=== PATIENT | female | born 1935 | race Caucasian/White ===

== ENCOUNTER → 2018-12-25 | Outpatient (CLI) | payer MEDICARE, OTHER ==
--- NOTE | 2018-12-25 10:54 | KCIC ---
CT HEAD INDICATION: Late onset Alzheimer's COMPARISON: None Available. Exposure: One or more of the following individualized dose reduction techniques were utilized for this examination: 1. Automated exposure control 2. Adjustment of the mA and/or kV according to patient size 3. Use of iterative reconstruction technique TECHNIQUE: 5 mm contiguous axial images were obtained from the skull base to the vertex in both bone and soft tissue algorithm. FINDINGS: Mild bilateral periventricular white matter hypodensities likely chronic small vessel ischemic disease. Mild age related cerebral atrophy changes. No evidence of acute intracranial hemorrhage. No extra-axial fluid collections. No mass effect or midline shift. Ventricular size is appropriate. Basal cisterns are patent. No fractures identified.Jack-white differentiation is preserved.Globes and orbits are within normal limits. Paranasal sinuses and mastoid air cells are clear. IMPRESSION: No acute intracranial findings. Electronically signed by: Adriano Taylor MD (12/25/2018 10:51 AM) [facility]
== END | disposition home or self-care (01) ==
LOC: KCIC CT 09:56
PROVIDERS: ATTEND Psychiatry & Neurology Neurology with Special Qualifications in Child Neurology
DX: G31.89 Other specified degenerative diseases of nervous system (principal); G30.1 Alzheimer's disease with late onset; R90.82 White matter disease, unspecified
CPT/HCPCS: 70450

== ENCOUNTER → 2020-03-26 | Outpatient (CLI) | payer MEDICARE, OTHER ==
[~2020-03-26] MED LIST: REGADENOSON 0.4 MG/5 ML DISP.SYRIN. IV ONE
--- NOTE | 2020-03-28 10:39 | RAD ---
MR#: [id number] Date of Study: 03/26/2020 Ordering Physician: ASHLEY NAVARRO, Referring Physician: KASIA COSTELLO Tech: RT Dominique (R) (N) APPROVED REPORT Test Type: Pharmacological Stress Nurse/Tech: Griselda Joya RN Test Indications: chest pain Cardiac History: Hypertension,valve replacement 1995 Medications: See Electronic Medical Record Medical History: See Electronic Medical Record Resting ECG: SB with BBB Resting Heart Rate: 51 bpm Resting Blood Pressure: 170/65mmHg Pretest Chest Pain: No chest pain Nurse/Tech Notes S1,S2 and lungs clear to auscultation. Consent: The procedure was explained to the patient in lay terms. Informed consent was witnessed. David eout was entered into Curiously. History and Stress Test performed by DEBORA Cha, ELENA (R) (N) Pharm. Details Pharmacologic stress testing was performed using 0.4mg per 5ml of regadenoson given intravenously ove r 7-10 seconds. Stress Symptoms Headache POST EXERCISE Reason for Termination: Infusion complete Target HR: No Max HR: 82 bpm 71% of Maximum Predicted HR: 114 bpm Max Blood Pressure: 121/52mmHg Blood Pressure response to exercise: Abnormal blood pressure response during stress. Heart Rate response to exercise: WNL Chest Pain: No. Arrhythmia: No. ST Change: No. INTERPRETATION Stress EKG Conclusion: The resting EKG shows a sinus rhythm and nonspecific ST-T wave changes. The stress EKG shows no significant change from baseline. No EKG evidence of stress-induced ischemia. Imaging Protocol IMAGE PROTOCOL: Rest Tc-99m/stress Tc-99m 1 day Rest: Stress: Viability: Radiopharm.Tc99m DxaotlhsrTo52g Sestamibi Dubp60tSa 31mCi Duration 13min. 13min. Img Date 03/26/2020 03/26/2020 Inj-Img Lajf90ldp. 60min. Rest Admin Site:IV - Right WristAdministrator:DEBORA Cha, ELENA (R)(N) Stress Admin Site: IV - Right WristAdministrator: DEBORA Cha, ARRT (R)(N) STRESS DATA End Diast. Vol.62.0mlLVEDV index BSA35.0ml End Syst. Vol.13.0mlLVESV index BSA8.0ml Myocardial Mass99.0gEject. Vkrprvzk60.0% Stress Scores Regional WT0.00Summed WT2.00 Regional WM0.00Summed WM1.00 LV Perfusion The stress scans show a mild to moderate apical defect. The rest scans showed mild apical thinning. Nuclear imaging show an area of reversible ischemia at the apex. Wall Motion Left ventricular systolic function is normal with an ejection fraction of greater than 70%. LV Perf. Quant 17 Seg. SSS10.00 17 Seg. SRS6.00 17 Seg. SDS4.00 Stress Defect Extent (% LAD)41.30Rest Defect Extent (% LAD)11.90Rev. Defect Extent (% LAD)41.30 Stress Defect Extent (% LCX) 15.00Rest Defect Extent (% LCX)0.00Rev. Defect Extent (% LCX)15.00 Stress Defect Extent (% RCA)0.00Rest Defect Extent (% RCA)0.00Rev. Defect Extent (% RCA)0.00 Stress Defect Extent (% RACHEL)25.90Rest Defect Extent (% RACHEL)5.00Rev. Defect Extent (% RACHEL)25.90 Conclusion 1. No EKG evidence of stress-induced ischemia. 2. Nuclear imaging shows a area of reversible ischemia at the apex. 3. Left ventricular systolic function is normal with an ejection fraction of greater than 70%. 4. Moderate to moderately high risk test. Signed by : Rashaun Pickett MD Electronically Approved : 03/28/2020 10:39:07
== END | disposition home or self-care (01) ==
LOC: NM 08:55
PROVIDERS: ATTEND Internal Medicine Cardiovascular Disease
DX: I25.89 Other forms of chronic ischemic heart disease (principal)
CPT/HCPCS: 78452; 93017; A9500; J2785

== ENCOUNTER → 2020-04-08 | Outpatient (CLI) | payer MEDICARE, OTHER ==
[~2020-04-08] MED LIST changes: +AMLO5TAB10 PO; +ATOR40TA59 PO; +CETI10TA16 PO; +DONE10TA7 PO; +FEXO180T16 PO; +HYDR12.575 PO; +MEMA10TA PO; -REGADENOSON 0.4 MG/5 ML DISP.SYRIN. IV ONE; +TELM40TA PO; +WARF7.5T45 PO; +ZOLP5TAB5 PO
== END ==
LOC: LAB 13:03
PROVIDERS: ATTEND Internal Medicine Cardiovascular Disease
DX: Z20.828 Contact with and (suspected) exposure to other viral communicable diseases (principal)
CPT/HCPCS: U0003-CS

== ENCOUNTER 2020-04-11 08:26 | Observation (INO) | payer MEDICARE, OTHER ==
[2020-04-11] VITALS (22 sets, daily range): BP systolic 93–177; BP diastolic 48–88
[~2020-04-11] VITALS: Ht 152.4 cm; Wt 83.0 kg
[~2020-04-11 08:26] MED LIST changes: +AMLO-186 PO; -AMLO5TAB10 PO
[2020-04-11 09:12] LABS: HEMATOCRIT 39.3 % (36.0-47.0); HEMOGLOBIN 13.5 g/dL (12.0-15.5); RED BLOOD COUNT 4.31 x10^6/uL (3.50-5.40); RED CELL DISTRIBUTION WIDTH 14.1 % (11.5-14.5); WHITE BLOOD COUNT 5.3 x10^3/uL (4.0-11.0)
[2020-04-11 09:22] LABS: PROTHROMBIN TIME PATIENT 16.2 SEC (11.7-14.0)
[2020-04-11 09:27] LABS: CALCIUM 9.2 mg/dL (8.5-10.1); CREATININE 1.5 mg/dL (0.6-1.0); POTASSIUM 3.9 mmol/L (3.5-5.1)
[2020-04-11] MEDS ORDERED: DONE10TA7 PO (09:27)
[2020-04-11] MEDS ORDERED: TELM80TA PO (09:27)
[2020-04-11] MEDS ORDERED: IODIXANOL 320 MG/ML 100 ML VIAL. ONE ×2 (09:45→10:48)
[2020-04-11] MEDS ORDERED: LIDOCAINE 1% PF 2 ML VIAL. ONE (09:45)
[2020-04-11] MEDS ORDERED: VERAPAMIL 5 MG/2 ML VIAL. ONE (10:06)
[2020-04-11] MEDS ORDERED: HEPARIN for IV BOLUS 10,000 UNIT/10 ML VIAL. ONE (10:06)
[2020-04-11] MEDS ORDERED: MIDAZOLAM HCL/PF 2 MG/2 ML VIAL. ONE ×2 (10:06→10:46)
[2020-04-11] MEDS ORDERED: fentaNYL PF VIAL 100 MCG/2 ML VIAL ONE (10:06)
[2020-04-11] MEDS ORDERED: NITROGLYCERIN 200 MCG/2 ML SYRINGE FOR CATH/VASC LAB. ONE (10:07)
[2020-04-11] MEDS ORDERED: NITROGLYCERIN 200 MCG/2 ML SYRINGE FOR CATH/VASC LAB. IART ONE (10:15)
[2020-04-11] MEDS ORDERED: VERAPAMIL 5 MG/2 ML VIAL. IART ONE (10:15)
[2020-04-11] MEDS ORDERED: LIDOCAINE 1% PF 2 ML VIAL. INJ ONE (10:15)
[2020-04-11] MEDS ORDERED: fentaNYL PF VIAL 100 MCG/2 ML VIAL IV ONE (10:15)
[2020-04-11] MEDS ORDERED: IODIXANOL 320 MG/ML 100 ML VIAL. IART ONE (10:15)
[2020-04-11] MEDS ORDERED: MIDAZOLAM HCL/PF 2 MG/2 ML VIAL. IV ONE (10:15)
[2020-04-11] MEDS ORDERED: HEPARIN for IV BOLUS 10,000 UNIT/10 ML VIAL. IART ONE (10:15)
[2020-04-11] MEDS ORDERED: LIDOCAINE 1% Multi-Dose 20 ML VIAL. ONE (10:48)
[2020-04-11] MEDS ORDERED: diphenhydrAMINE 50 MG/ML VIAL ONE (10:52)
[2020-04-11] MEDS ORDERED: BIVALIRUDIN 250 MG VIAL. IV ONE ×2 (10:58→11:15)
[2020-04-11] MEDS ORDERED: diphenhydrAMINE 50 MG/ML VIAL IVP ONE (11:00)
[2020-04-11] MEDS ORDERED: ASPIRIN 325 MG TABLET PO ONE (11:15)
[2020-04-11] MEDS ORDERED: CLOPIDOGREL BISULFATE 75 MG TABLET PO ONE (11:15)
[2020-04-11] MEDS ORDERED: LIDOCAINE 1% Multi-Dose 20 ML VIAL. INJ ONE (11:15)
[2020-04-11] MEDS ORDERED: CONTRAST GIVEN. MC PRN (11:15)
[2020-04-11] MEDS ORDERED: ASPIRIN 325 MG TABLET ONE (11:19)
[2020-04-11] MEDS ORDERED: CLOPIDOGREL BISULFATE 75 MG TABLET ONE (11:19)
--- NOTE | 2020-04-11 11:48 | PDOC ---
MODERATE SEDATION ASSESSMENT RISKS/ALTERNATIVES Risks/Alternatives Risks and alternatives of this type of sedation and procedure discussed with: RISK/ALTERNATIVES: Patient H & P ON CHART H & P H & P on chart and reviewed for co-morbid conditions and appropriate labs. H&P ON CHART: Yes STATUS PREG STATUS ASSESSED: N/A MEDS/ALLERGIES REVIEWED Meds/Allergies Reviewed Medications and Allergies including time and route of recently administered narcotics and sedatives. MEDS/ALLERGIES REVIEWED: Yes ASA RATING ASA RATING: III AIRWAY ASSESSMENT Airway Assessment Airway patency, oral function limitations, presence of caps, crowns, dentures, partials, and ability to extend neck assessed. AIRWAY ASSESSMENT: Yes MALLAMPATI SCORE MALLAMPATI SCORE: II PRE-SEDATION ASSESSMENT PRE-SEDATION ASSESSMENT: Yes ASHLEY NAVARRO MD Apr 11, 2020 11:48
[2020-04-11] MEDS ORDERED: NITROGLYCERIN SUBLINGUAL 0.4 MG BOTTLE OF 25. SL PRN (12:00)
[2020-04-11] MEDS ORDERED: 0.9 % SODIUM CHLORIDE 10 ML DISP.SYRIN. IV PRN (12:00)
--- NOTE | 2020-04-11 12:00 | NUR ---
Pt arrived to room 250 via bed with lab intern staff and daughter. Right Radial TR band in place with 10cc's of air. No oozing, 2+ radial pulses. Right groin cath site soft and no bleeding. Right lower extremity warm with 2+ pedal pulses. Patient instructed to lay supine for 2 hours after cath. Tele monitor applied, pt in SR with rate in 50s. A&Ox3, forgetful at times, complaining of back pain d/t laying flat. No SOB or chest pain. Will continue to monitor.
--- NOTE | 2020-04-11 12:07 | CARD ---
MR#: [id number] Date of Study: 04/11/2020 Ordering Physician: ASHLEY BERNSTEIN, Referring Physician: ASHLEY BERNSTEIN Tech: Maylin Torres APPROVED REPORT Technologist: Maylin Torres Nurse: Griselda Joya RN Procedure(s) performed: 1. Left heart catheterization, selective coronary and bypass graft angiograp hy. 2. Successful PCI/drug-eluting stents placement to the left anterior descending artery. fl time: 20.3 min dose: 129 gycm2 contrast: 158 ml moderate sedation: 70 MINS INDICATION The indication(s) include : Unstable angina and positive stress test.. [facility] Clinical Frailty Scale [facility] Clinical Frailty Scale: Mildly Frail Heart Failure Heart Failure: No PROCEDURE NARRATIVE After explaining the risks, benefits and alternative options, informed consent was obtained from jong ent. Patient was brought to the cardiac Software Architect and her right wrist was prepped and draped in the u sual fashion after confirming a positive modified Juvenal's test. Arterial access was obtained in the right radial artery and a 6 Cypriot sheath was inserted. Initial attempts to advance a 0.035 inch miguel dewire were unsuccessful due to radial arterial loop. This was crossed with a 0.014 inch [employer] pro-w ater guidewire and a 6 Cypriot David catheter was advanced. However, attempts at engaging the coronar y arteries with this catheter were unsuccessful. 5 Cypriot JL 3.5 was used to engage the left main co ronary artery and selective angiography was performed. Attempts at engaging the right coronary arter y with 5 Cypriot JR4 catheter were unsuccessful due to severe radial arterial spasm. This did not res olve in spite of adequate sedation and vasodilators. Hence a decision was made to switch the access site to right common femoral artery. The right groin was prepped and draped in the usual fashion, 20 cc of 2% lidocaine was infiltrated to the skin and subcutaneous tissues, arterial access obtained in the right common femoral artery and a 6 Cypriot sheath was inserted. The 5 Cypriot JR4 catheter was u sed to perform selective angiography of the right coronary artery. A 6 Cypriot multipurpose catheter was used to engage the saphenous vein graft to the right coronary artery and selective angiography wa s performed. Left ventriculography was not performed since patient has mechanical aortic valve. The following findings were noted. FINDINGS 1. Left main coronary artery arose from the left sinus of Valsalva, gave rise to the left anterior d escending and left circumflex arteries and did not show any significant stenosis. 2. The left anterior descending artery showed a calcified 90% stenosis in the proximal to mid segmen t, calcified 80% stenosis in the midsegment and 40% stenosis in the distal segment. The second diago nal branch which is a small caliber vessel showed 70% stenosis in the proximal segment. 3. The left circumflex artery did not show any significant stenosis. 4. The right coronary artery arose from the right sinus of Valsalva and showed 100% chronic total oc clusion in the proximal segment. 5. Saphenous vein graft to the right coronary artery was heavily calcified and showed 90% stenosis i n the midsegment. INTERVENTION Left main coronary artery was engaged with a 6 Cypriot XB 3.5 guide catheter. The stenosis in the lef t anterior descending artery were crossed with a 0.014 inch [employer] pro-water guidewire. These were pr edilated with a 2.5 x 15 mm [employer] emerge balloon. The proximal to mid segment stenosis w as then predilated with a 3.5 x 12 mm emerge balloon. Subsequently, the mid segment stenosis was karen ated with a 2.5 x 15 mm resolute Denis drug-eluting stent. The proximal segment stenosis was treated with a 3.5 x 12 mm resolute Denis drug-eluting stent. Follow-up angiography showed resolution of both the lesions to 0% with SYLVIE-3 distal flow. Patient tolerated the procedure well. Hemostasis was ac hieved using Angio-Seal in the right PIPE TESTING TECHNICIAN and TR band in the right radial artery.. There were no imme diate complications. SYLVIE Flow SYLVIE Flow (Pre-Intervention): SYLVIE-2 SYLVIE Flow (Post-Intervention): SYLVIE-3 Conclusion 1. Severe coronary artery disease involving the left anterior descending artery, right coronary vinod ry and also the saphenous vein graft to the right coronary artery as described above. 2. Successful PCI/drug-eluting stents placement to the left anterior descending artery. Recommendations 1. Aspirin 81 mg daily for 1 month (patient on triple therapy) 2. Plavix 75 mg daily 3. Plan for staged PCI/GUMARO to saphenous vein graft to the right coronary artery, possibly with dista l embolic protection. 4. Cardiovascular risk factor modification. Signed by : Ashley Bernstein, Electronically Approved : 04/11/2020 12:06:47
[2020-04-11] MEDS: IV 1/2 NORMAL SALINE 1,000 ML IV SCH (13:00)
--- NOTE | 2020-04-11 13:15 | EKG ---
[facility] [address] [place] [address] Test Date: 2020-04-11 Test Time: 13:13:26 Pat Name: ILANA LOZANO Department: Room: [facility] [place] Gender: F Tire Design Engineer: OSEAS : 1935 Requested By: ASHLEY NAVARRO Order Number: [id number] Reading MD: Measurements Intervals [place] Rate: 49 P: -68 IA: 240 QRS: 116 QRSD: 126 T: 21 QT: 506 QTc: 460 Interpretive Statements SINUS BRADYCARDIA PROLONGED IA INTERVAL ABNORMAL RIGHT AXIS DEVIATION LOW LIMB LEAD VOLTAGE RIGHT BUNDLE BRANCH BLOCK ABNORMAL ECG RI6.02 No previous ECG available for comparison
[2020-04-11] MEDS: ACETAMINOPHEN 325 MG TABLET. PO PRN (13:26)
[2020-04-11] MEDS ORDERED: ZOLPIDEM 5 MG TABLET. PO PRN (13:45)
[2020-04-11] MEDS ORDERED: HYDROcodone/APAP 5/325MG 1 TAB TABLET PO PRN (13:45)
[2020-04-11] MEDS ORDERED: WARFARIN 5 MG TABLET. PO ONE (16:00)
[2020-04-11] MEDS ORDERED: ATORVASTATIN CALCIUM 40 MG TABLET. PO SCH (21:00)
[2020-04-12] MEDS: IV 1/2 NORMAL SALINE 1,000 ML IV SCH (01:45)
[2020-04-12 02:27] VITALS: BP 100/52
[2020-04-12] MEDS: ACETAMINOPHEN 325 MG TABLET. PO PRN (06:02)
[2020-04-12 07:00] VITALS: BP 122/58
[2020-04-12] MEDS ORDERED: CLOPIDOGREL BISULFATE 75 MG TABLET PO SCH (08:00)
[2020-04-12] MEDS ORDERED: ASPIRIN ENTERIC COATED 81 MG TABLET.DR. PO SCH (08:00)
[2020-04-12] MEDS ORDERED: DONEPEZIL HCL 10 MG TABLET. PO SCH (09:00)
[2020-04-12] MEDS ORDERED: CETIRIZINE HCL 10 MG TABLET. PO SCH (09:00)
[2020-04-12] MEDS ORDERED: MEMANTINE 10 MG TABLET. PO SCH (09:00)
[2020-04-12] MEDS ORDERED: LOSARTAN POTASSIUM 50 MG TABLET. PO SCH (09:00)
[2020-04-12] MEDS ORDERED: hydroCHLOROthiazide 12.5 MG CAPSULE PO SCH (09:00)
[2020-04-12] MEDS ORDERED: NON FORMULARY ITEM (Fexofenadine Hcl 180 MG) PO SCH (09:00)
[2020-04-12] MEDS ORDERED: amLODIPine BESYLATE 5 MG TABLET PO SCH (09:00)
[2020-04-12 10:24] LABS: PROTHROMBIN TIME PATIENT 15.6 SEC (11.7-14.0)
[2020-04-12 11:02] VITALS: BP 114/59
== END 2020-04-12 13:14 | disposition home or self-care (01) ==
LOC: CCL 08:26 → 2 SOUTH 11:00
PROVIDERS: ADMIT Internal Medicine Cardiovascular Disease; ATTEND Internal Medicine Cardiovascular Disease
DX: R07.89 Other chest pain (principal); I10 Essential (primary) hypertension; I45.10 Unspecified right bundle-branch block; I25.10 Atherosclerotic heart disease of native coronary artery without angina pectoris; I35.0 Nonrheumatic aortic (valve) stenosis; E78.5 Hyperlipidemia, unspecified; G30.9 Alzheimer's disease, unspecified; F02.80 Dementia in other diseases classified elsewhere, unspecified severity, without behavioral disturbance, psychotic disturbance, mood disturbance, and anxiety; Z68.35 Body mass index [BMI] 35.0-35.9, adult; Z95.2 Presence of prosthetic heart valve; Z79.01 Long term (current) use of anticoagulants; Z90.710 Acquired absence of both cervix and uterus; Z85.038 Personal history of other malignant neoplasm of large intestine; Z79.899 Other long term (current) drug therapy
CPT/HCPCS: 36415; 80048; 85027; 85610; 92928; 93005; 93455; 96361; 96374; 96375; 99152; 99153; C1725; C1760; C1769; C1874; C1887; C1892; G0269; G0378; G0379; J0583; J1644; J2250; J3010; J3490; Q9967; C1771

== ENCOUNTER 2020-04-25 08:45 | Observation (INO) | payer MEDICARE, OTHER ==
[2020-04-25] VITALS (17 sets, daily range): BP systolic 88–136; BP diastolic 45–84
[~2020-04-25] VITALS: Ht 152.4 cm; Wt 84.0 kg
[~2020-04-25 08:45] MED LIST changes: +TELM80TA PO
[2020-04-25 09:20] LABS: HEMATOCRIT 39.4 % (36.0-47.0); HEMOGLOBIN 13.4 g/dL (12.0-15.5); RED BLOOD COUNT 4.3 x10^6/uL (3.50-5.40); RED CELL DISTRIBUTION WIDTH 13.7 % (11.5-14.5); WHITE BLOOD COUNT 5.9 x10^3/uL (4.0-11.0)
[2020-04-25] MEDS ORDERED: LIDOCAINE 1% PF 2 ML VIAL. ONE (09:29)
[2020-04-25] MEDS ORDERED: IODIXANOL 320 MG/ML 100 ML VIAL. ONE (09:29)
[2020-04-25 09:30] LABS: CALCIUM 9.2 mg/dL (8.5-10.1); CREATININE 1.3 mg/dL (0.6-1.0); GFR 38.9; POTASSIUM 4.2 mmol/L (3.5-5.1); PROTHROMBIN TIME PATIENT 14.1 SEC (11.7-14.0)
[2020-04-25] MEDS ORDERED: LIDOCAINE 1% Multi-Dose 20 ML VIAL. ONE (09:50)
[2020-04-25] MEDS ORDERED: fentaNYL PF VIAL 100 MCG/2 ML VIAL ONE (09:57)
[2020-04-25] MEDS ORDERED: MIDAZOLAM HCL/PF 2 MG/2 ML VIAL. ONE (09:57)
[2020-04-25] MEDS ORDERED: BIVALIRUDIN 250 MG VIAL. IV ONE ×2 (09:57→10:45)
[2020-04-25] MEDS ORDERED: LIDOCAINE 1% Multi-Dose 20 ML VIAL. INJ ONE (10:45)
[2020-04-25] MEDS ORDERED: IODIXANOL 320 MG/ML 100 ML VIAL. IART ONE (10:45)
[2020-04-25] MEDS ORDERED: fentaNYL PF VIAL 100 MCG/2 ML VIAL IV ONE (10:45)
[2020-04-25] MEDS ORDERED: CONTRAST GIVEN. MC PRN (10:45)
[2020-04-25] MEDS ORDERED: MIDAZOLAM HCL/PF 2 MG/2 ML VIAL. IV ONE (10:45)
[2020-04-25] MEDS ORDERED: HEPARIN for IV BOLUS 10,000 UNIT/10 ML VIAL. IV PRN (11:00)
[2020-04-25] MEDS ORDERED: HEPARIN 25,000UTS/250ML PREMIX 250 ML IV PRN (11:00)
[2020-04-25] MEDS ORDERED: NITROGLYCERIN 200 MCG/2 ML SYRINGE FOR CATH/VASC LAB. ICAR ONE (11:00)
[2020-04-25] MEDS ORDERED: CLOP75TA PO (11:12)
--- NOTE | 2020-04-25 11:13 | PDOC ---
MODERATE SEDATION ASSESSMENT RISKS/ALTERNATIVES Risks/Alternatives Risks and alternatives of this type of sedation and procedure discussed with: RISK/ALTERNATIVES: Patient H & P ON CHART H & P H & P on chart and reviewed for co-morbid conditions and appropriate labs. H&P ON CHART: Yes STATUS PREG STATUS ASSESSED: N/A MEDS/ALLERGIES REVIEWED Meds/Allergies Reviewed Medications and Allergies including time and route of recently administered narcotics and sedatives. MEDS/ALLERGIES REVIEWED: Yes ASA RATING ASA RATING: III AIRWAY ASSESSMENT Airway Assessment Airway patency, oral function limitations, presence of caps, crowns, dentures, partials, and ability to extend neck assessed. AIRWAY ASSESSMENT: Yes MALLAMPATI SCORE MALLAMPATI SCORE: II PRE-SEDATION ASSESSMENT PRE-SEDATION ASSESSMENT: Yes ASHLEY NAVARRO MD Apr 25, 2020 11:13
[2020-04-25] MEDS ORDERED: ACETAMINOPHEN 325 MG TABLET. PO PRN (11:15)
[2020-04-25] MEDS ORDERED: NITROGLYCERIN SUBLINGUAL 0.4 MG BOTTLE OF 25. SL PRN (11:15)
--- NOTE | 2020-04-25 11:23 | CARD ---
MR#: [id number] Date of Study: 04/25/2020 Ordering Physician: ASHLEY NAVARRO, Referring Physician: ASHLEY NAVARRO, Tech: JAIRO RENEE RTR APPROVED REPORT Technologist: JAIRO RENEE RTR Nurse: Sherly Plasencia R.N. Procedure(s) performed: Successful PCI/drug-eluting stent placement to the saphenous vein graft to ri ght coronary artery with distal embolic protection MODERATE SEDATION TIME: 63 MINS FLUORO TIME: 9.7 MIN DOSE: 80.1 GYCM2 CONTRAST: 130CC VISI INDICATION The indication(s) include : 84-year-old female recently underwent PCI/GUMARO to LAD in the setting of un stable angina and positive stress test. She presented today for staged PCI/GUMARO to the saphenous vein graft to the right coronary artery.. [facility] Clinical Frailty Scale [facility] Clinical Frailty Scale: Moderately Frail Heart Failure Heart Failure: No PROCEDURE NARRATIVE After explaining the risk, benefits and alternative options, informed consent was obtained for patien t. Patient was brought to the cardiac Machine Scallop Cutter and her right groin was prepped and draped in the usu al fashion. 20 cc of 2% lidocaine was infiltrated to the skin and subcutaneous tissues for local ane sthesia. Arterial access was obtained in the right common femoral artery and a 6 Danish sheath was i nserted. 6 Danish MPA guide catheter was advanced under fluoroscopic guidance, the saphenous vein gr aft to the right coronary artery engaged and selective angiography was performed. This confirmed the previously described 80 to 90% stenosis involving the midsegment. Since patient's bypass surgery was approximately 25 years ago, we decided to use distal embolic prote ction to prevent no flow situation. A [place] [employer] filter wire EZ was prepped, advanced under f luoroscopy guidance and was deployed successfully in the distal segment of the vein graft. The lesio n was then dilated with a 3.5 x 15 mm Euphora balloon. The stenosis was treated with a 4.5 x 18 mm r esolute [place] drug-eluting stent. The filter wire was then successfully retrieved. Follow-up angiogr aphy showed resolution of the stenosis with SYLVIE-3 distal flow. Patient tolerated the procedure well . Hemostasis was achieved using Mynx closure device. There were no immediate complications. SYLVIE Flow SYLVIE Flow (Pre-Intervention): SYLVIE-2 SYLVIE Flow (Post-Intervention): SYLVIE-3 Conclusion Successful PCI/GUMARO to SVG to RCA with distal embolic protection using filter wire. Recommendations 1. Aspirin 81 mg daily for 1 month (patient on triple therapy) 2. Plavix 75 mg daily 3. Cardiovascular risk factor modification 4. Cardiac rehabilitation referral Signed by : Ashley Navarro, Electronically Approved : 04/25/2020 11:22:37
[2020-04-25] MEDS ORDERED: HEPARIN 25,000UTS/250ML PREMIX 250 ML IV ONE (11:35)
--- NOTE | 2020-04-25 11:50 | NUR ---
Patient given 250cc normal saline fluid bolus for blood pressure of 88/49. Repeat blood pressure 100/50, will continue to monitor.
--- NOTE | 2020-04-25 14:53 | NUR ---
Report given to Adrian BENJAMIN on . Patient has eaten lunch and walked to the bathroom with minimal assistance, no complaints of pain. Patient going to room 244.
[2020-04-25] MEDS ORDERED: ZOLPIDEM 5 MG TABLET. PO PRN (17:30)
[2020-04-25] MEDS: IV 1/2 NORMAL SALINE 1,000 ML IV SCH (18:35)
[2020-04-25] MEDS ORDERED: ATORVASTATIN CALCIUM 40 MG TABLET. PO SCH (21:00)
[2020-04-26] MEDS: IV 1/2 NORMAL SALINE 1,000 ML IV SCH (02:05)
[2020-04-26 02:44] LABS: HEMATOCRIT 36.5 % (36.0-47.0); HEMOGLOBIN 12.5 g/dL (12.0-15.5); RED CELL DISTRIBUTION WIDTH 13.8 % (11.5-14.5); WHITE BLOOD COUNT 5.7 x10^3/uL (4.0-11.0)
[2020-04-26 03:45] VITALS: BP 111/60
[2020-04-26 07:00] VITALS: BP 100/41
[2020-04-26] MEDS ORDERED: ASPIRIN ENTERIC COATED 81 MG TABLET.DR. PO SCH (08:00)
[2020-04-26] MEDS ORDERED: CLOPIDOGREL BISULFATE 75 MG TABLET PO SCH ×2 (08:00→09:00)
[2020-04-26] MEDS ORDERED: CETIRIZINE HCL 10 MG TABLET. PO SCH (09:00)
[2020-04-26] MEDS ORDERED: DONEPEZIL HCL 10 MG TABLET. PO SCH (09:00)
[2020-04-26] MEDS ORDERED: LOSARTAN POTASSIUM 50 MG TABLET. PO SCH (09:00)
[2020-04-26] MEDS ORDERED: hydroCHLOROthiazide 12.5 MG CAPSULE PO SCH (09:00)
[2020-04-26] MEDS ORDERED: WARFARIN 7.5 MG TABLET. PO SCH (09:00)
[2020-04-26] MEDS ORDERED: amLODIPine BESYLATE 5 MG TABLET PO SCH (09:00)
[2020-04-26] MEDS ORDERED: NON FORMULARY ITEM (Fexofenadine Hcl 180 MG) PO SCH (09:00)
[2020-04-26] MEDS ORDERED: MEMANTINE 10 MG TABLET. PO SCH (09:00)
[2020-04-26 10:29] VITALS: BP 144/59
[2020-04-26] MEDS ORDERED: ASPI-886 PO (12:41)
--- NOTE | 2020-04-26 13:35 | NUR ---
Discharge Note: ILANA LOZANO 2 [facility] Discharge instructions and discharge home medications reviewed with Patient and a copy given. All questions have been answered and understanding verbalized. The following instructions and handouts were given: Post cath - activity Discontinued IV line Patient discharged to home with self care via family member
--- NOTE | 2020-04-26 14:40 | PDOC3 ---
DISCHARGE SUMMARY DISCHARGE SUMMARY: Date of discharge: April 26, 2020 Final discharge diagnoses: 1. Coronary artery disease status post PCI to the saphenous vein graft to the RCA 2. Hypertension 3. Dyslipidemia 4. s/p mechanical aortic valve on coumadin therapy Hospital course: 84-year-old woman presented for a elective vein graft PCI in the setting of a previous LAD stent and current staged procedure. She underwent successful vein graft stenting and was monitored overnight. On the morning of discharge the patient did not have any chest pain or dyspnea. She tolerated the procedure well and her right groin access site was clean, dry and intact with 2+ femoral and 1+ pedal pulses. No evidence of hematoma was noted. Patient was treated with overnight heparin drip in the setting of her known mechanical aortic valve. Discharge medications: Unchanged from home medications. See medication administration report. *Of note patient will be on triple therapy with aspirin 81 mg daily, Plavix 75 mg daily and Coumadin to therapeutic INR of 2.5 over the next 2 weeks, then she will stop her aspirin and continue Plavix and Coumadin only. This was conveyed to the patient. Disposition: To home Follow-up: [address] Bernstein. Justicifation of Admission Dx: Justifications for Admission: Justification of Admission Dx: N/A EDDIE CHANG MD Apr 26, 2020 14:40
== END 2020-04-26 13:35 | disposition home or self-care (01) ==
LOC: CCL 08:45 → 2 SOUTH 13:14
PROVIDERS: ADMIT Internal Medicine Cardiovascular Disease; ATTEND Internal Medicine Cardiovascular Disease
DX: I25.10 Atherosclerotic heart disease of native coronary artery without angina pectoris (principal); I10 Essential (primary) hypertension; E78.5 Hyperlipidemia, unspecified; Z95.5 Presence of coronary angioplasty implant and graft; Z79.01 Long term (current) use of anticoagulants; Z95.2 Presence of prosthetic heart valve; Z79.899 Other long term (current) drug therapy; Z79.02 Long term (current) use of antithrombotics/antiplatelets; Z79.82 Long term (current) use of aspirin
CPT/HCPCS: 36415; 80048; 85027; 85520; 85610; 92937; 96361; 96365; 96366; 96375; 99152; 99153; C1713; C1725; C1769; C1874; C1884; C1887; C1892; G0269; G0378; G0379; J0583; J1644; J2250; J3010; J3490; Q9967; 96374

== ENCOUNTER 2021-01-05 12:39 | Emergency (ER) | payer MEDICARE, OTHER ==
[~2021-01-05] VITALS: Ht 152.4 cm; Wt 81.8 kg
[~2021-01-05 12:39] MED LIST changes: +ASPI-886 PO; +CLOP75TA PO
--- NOTE | 2021-01-05 13:57 | EKG ---
[facility] [address] [place] [address] Test Date: 2021-01-05 Test Time: 13:50:55 Pat Name: ILANA LOZANO Department: Room: Gender: F Live Source Operator: : 1935 Requested By: MAGO CASTILLO Order Number: [id number] Reading MD: Rasta Bernstein Measurements Intervals [place] Rate: 64 P: MD: QRS: 109 QRSD: 74 T: 16 QT: 450 QTc: 469 Interpretive Statements SINUS RHYTHM FIRST DEGREE AV BLOCK RIGHT BUNDLE BRANCH BLOCK LOW LIMB LEAD VOLTAGE NON SPECIFIC ST DEPRESSION ABNORMAL ECG Electronically Signed On 01-07-2021 11:58:20 CDT by Rasta Bernstein
[2021-01-05 13:59] VITALS: BP 157/67
[2021-01-05] MEDS ORDERED: ASPIRIN CHEWABLE 81 MG TABLET. PO ONE (14:00)
--- NOTE | 2021-01-05 14:10 | PHYS DOC ---
Past Medical History Past Medical History: CAD, Heart Disease Smoking Status: Former Smoker General Adult EDM: Chief Complaint: HYPOTENSION HPI: HPI: Patient is a 85-year-old female presenting with daughter for hypotension. Patient was at rest approximately 3 hours ago playing dominoes with other family members when she started feeling lightheaded and dizzy. The symptoms were transient but occurred a little while later which concerned daughter to take blood pressure and was reported to be 90/50. Patient went with the daughter to [employer] to shop when she started getting lightheaded and dizzy again and her blood pressure was checked there and again 90/60. She was transported to a local urgent care, she was triaged and again found to be hypotensive and was immediately alerted that she should be transported to our ER for evaluation. Patient denies any significant changes in health, trauma, falls or other prodromal symptoms prior to today when she was playing [employer]. She has had no recent medication changes. She has history of [place] heart valve replacement and is on warfarin for this, also underwent PCI to saphenous vein graft to the RCA 04/2020 with most recent identifiable echo 03/2020 with EF of 50%. No recent travel, sick contacts, fever, vision changes, chest pain, ripping or tearing sensation in chest, shortness of breath, abdominal pain, urinary symptoms Review of Systems: Review of Systems: Fourteen body systems of review of systems have been reviewed. See HPI for pertinent positives and negative responses, other little all other systems are negative, non-pertinent or non-contributory Heart Score: C/O Chest Pain: No HEART Score for Chest Pain: HEART Score for Chest Pain Response (Comments) Value History Moderately Suspicious 1 ECG Nonspecific Repolarizatio 1 Age > 65 2 Risk Factors >3 Risk Factors or Hx CAD 2 Troponin < Normal Limit 0 Total 6 Risk Factors: Risk Factors: DM, Current or recent (<one month) smoker, HTN, HLP, family history of CAD, obesity. Risk Scores: Score 0 - 3: 2.5% MACE over next 6 weeks - Discharge Home Score 4 - 6: 20.3% MACE over next 6 weeks - Admit for Clinical Observation Score 7 - 10: 72.7% MACE over next 6 weeks - Early Invasive Strategies Current Medications: Current Medications Medications (Trade) Dose Ordered Sig/Kristopher Start Time Stop Time Status Last Admin Dose Admin Aspirin (Aspirin Chewable) 162 mg 1X ONCE 01/05/21 14:00 01/05/21 14:01 DC Allergies: Allergies: Allergies Coded Allergies Type Severity Reaction Last Updated Verified No Known Drug Allergies 03/26/20 No Physical Exam: PE: Constitutional: Well developed, well nourished, no acute distress, non-toxic appearance. HENT: Normocephalic, atraumatic, bilateral external ears normal, oropharynx moist, no oral exudates, nose normal. Eyes: PERRLA, EOMI, conjunctiva normal, no discharge. Neck: Normal range of motion, no tenderness, supple, no stridor. Cardiovascular: Heart rate regular, sinus rhythm, no murmurs rubs or gallops, large ST consistent with mechanical heart valve replacement Lungs & Thorax: Bilateral breath sounds clear to auscultation Abdomen: Bowel sounds normal, soft, no tenderness, no masses, no pulsatile masses. Nonsurgical abdomen, no peritoneal signs Skin: Warm, dry, no erythema, no rash. Back: No tenderness, no CVA tenderness. Extremities: No tenderness, no cyanosis, no clubbing, ROM intact, no edema. Neurologic: Alert and oriented X 3, cranial nerves II through XII intact, normal motor & sensory function, no focal deficits noted. Psychologic: Affect normal, judgement normal, mood normal. Current Patient Data: Labs: Laboratory Tests Test 01/05/21 14:04 White Blood Count 5.1 x10^3/uL Red Blood Count 4.34 x10^6/uL Hemoglobin 13.6 g/dL Hematocrit 39.4 % Mean Corpuscular Volume 91 fL Mean Corpuscular Hemoglobin 31 pg Mean Corpuscular Hemoglobin Concent 34 g/dL Red Cell Distribution Width 14.1 % Platelet Count 120 x10^3/uL Neutrophils (%) (Auto) 70 % Lymphocytes (%) (Auto) 15 % Monocytes (%) (Auto) 14 % Eosinophils (%) (Auto) 1 % Basophils (%) (Auto) 1 % Neutrophils # (Auto) 3.5 x10^3/uL Lymphocytes # (Auto) 0.7 x10^3/uL Monocytes # (Auto) 0.7 x10^3/uL Eosinophils # (Auto) 0.1 x10^3/uL Basophils # (Auto) 0.1 x10^3/uL Sodium Level 142 mmol/L Potassium Level 3.7 mmol/L Chloride Level 106 mmol/L Carbon Dioxide Level 28 mmol/L Anion Gap 8 Blood Urea Nitrogen 23 mg/dL Creatinine 1.5 mg/dL Estimated GFR (Cockcroft-Gault) 32.9 BUN/Creatinine Ratio 15 Glucose Level 110 mg/dL Calcium Level 8.9 mg/dL Total Bilirubin 0.8 mg/dL Aspartate Amino Transf (AST/SGOT) 19 U/L Alanine Aminotransferase (ALT/SGPT) 19 U/L Alkaline Phosphatase 76 U/L Troponin I Quantitative < 0.017 ng/mL SB-Svd-K-Type Natriuretic Peptide 595 pg/mL Total Protein 6.6 g/dL Albumin 3.9 g/dL Albumin/Globulin Ratio 1.4 Current Medications Medications (Trade) Dose Ordered Sig/Kristopher Route PRN Reason Start Time Stop Time Status Last Admin Dose Admin Aspirin (Aspirin Chewable) 162 mg 1X ONCE PO 01/05/21 14:00 01/05/21 14:01 DC Vital Signs: Vital Signs Date Time Temp Pulse Resp B/P (MAP) Pulse Ox O2 Delivery O2 Flow Rate FiO2 01/05/21 13:59 98.0 57 16 157/67 (97) 98 Room Air 98.0 Vital Signs Date Time Temp Pulse Resp B/P (MAP) Pulse Ox O2 Delivery O2 Flow Rate FiO2 01/05/21 13:59 98.0 57 16 157/67 (97) 98 Room Air 98.0 EKG: EKG: EKG ordered and interpreted by myself at 1405 hrs. as sinus rhythm with occasional PACs at 64 bpm, prolonged QTC at 469, right axis deviation, no STEMI Repeat EKG ordered and interpreted by myself 1440 hrs. as sinus rhythm with occasional PACs at 57 bpm, unremarkable intervals, right axis deviation, no STEMI EKGs obtained today compared to prior obtained 04/11/2020 showing no remarkable changes Radiology/Procedures: Radiology/Procedures: XR CHEST 1V History: Reason: lightheaded / Spl. Instructions: / History: Comparison: None. Findings: Linear ill-defined bibasilar opacities. No pleural effusion. No pneumothorax. Normal heart size. Prior median sternotomy and valve replacement. Impression: 1. Linear ill-defined bibasilar opacities, may represent atelectasis, chronic interstitial changes or developing infiltrates. If persistent clinical concern, recommend follow-up. Electronically signed by: Juarez Espitia DO (01/05/2021 2:10 PM) [id number] Course & Med Decision Making: Course & Med Decision Making ABCs unremarkable. I disclosed entirety of ER findings and discussed most likely diagnosis of hypotension of unknown etiology. I disclosed entirety of ER visit in fact that I have no emergent and/or surgical issues present; however, I did disclose heart score and the fact that patient has high risk for adverse cardiac events. Patient takes her blood pressure once daily, states it is usually systolic 110-120. I discussed and recommended hospital admission for continued cardiac observation but patient and daughter deferred. As such, I recommended patient increase frequency of blood pressure checks throughout the day to keep a log for primary care and/or hand sample maker to review within the upcoming week for medication reconciliation visit. Strict return precautions were also discussed at length with good understanding by patient. Patient and daughter voiced understanding and agreement with the plan. Patient and daughter knows to come back for repeat evaluation if concerning signs or symptoms present prior to outpatient follow-up. Hemodynamically stable, ambulatory and well-appearing at time of disposition. Dragon Disclaimer: Dragamaya Disclaimer: This electronic medical record was generated, in whole or in part, using a voice recognition dictation system. Departure Departure Impression: Primary Impression: Hypotension, unspecified Disposition: 01 HOME / SELF CARE / HOMELESS Condition: GOOD Referrals: JEANNIE MAGALLANES (PCP) Additional Instructions: As discussed prior to your departure, your vital signs, physical exam and comprehensive diagnostic work-up was nonconcerning for any emergent or surgical issues. I disclosed entirety of ER findings with you and discussed hospital admission for cardiac observation but you deferred. As such, please take all daily medications as prescribed and increase frequency that you check your blood pressure at home. It is pertinent that you do this and keep a dedicated blood pressure log for your primary care physician and/or hand sample maker to review as you might require decrease dose of current blood pressure medication. Any concerning signs or symptoms present prior to outpatient follow-up please do not hesitate to come back for repeat evaluation. It was a pleasure to take care of you and I wish you the best moving forward MAGO CASTILLO DO Jan 05, 2021 14:10
--- NOTE | 2021-01-05 14:12 | RAD ---
XR CHEST 1V History: Reason: lightheaded / Spl. Instructions: / History: Comparison: None. Findings: Linear ill-defined bibasilar opacities. No pleural effusion. No pneumothorax. Normal heart size. Prio r median sternotomy and valve replacement. Impression: 1. Linear ill-defined bibasilar opacities, may represent atelectasis, chronic interstitial changes o r developing infiltrates. If persistent clinical concern, recommend follow-up. Electronically signed by: Juarez Espitia DO (01/05/2021 2:10 PM) [id number]
[2021-01-05 14:36] LABS: BASO # 0.1 x10^3/uL (0.0-0.2); BASO % 1 % (0-3); EOS # 0.1 x10^3/uL (0.0-0.7); EOS % 1 % (0-3); HEMATOCRIT 39.4 % (36.0-47.0); HEMOGLOBIN 13.6 g/dL (12.0-15.5); LYMPH # 0.7 x10^3/uL (1.0-4.8); LYMPH % 15 % (24-48); MEAN CORPUSCULAR HEMOGLOBIN 31 pg (25-35); MEAN CORPUSCULAR HGB CONC 34 g/dL (31-37); MEAN CORPUSCULAR VOLUME 91 fL (79-100); MONO # 0.7 x10^3/uL (0.0-1.1); MONO % 14 % (0-9); NEUT # 3.5 x10^3/uL (1.8-7.7); NEUT % 70 % (31-73); PLATELET COUNT 120 x10^3/uL (140-400); RED BLOOD COUNT 4.34 x10^6/uL (3.50-5.40); RED CELL DISTRIBUTION WIDTH 14.1 % (11.5-14.5); WHITE BLOOD COUNT 5.1 x10^3/uL (4.0-11.0)
[2021-01-05 14:46] LABS: CALCIUM 8.9 mg/dL (8.5-10.1); CREATININE 1.5 mg/dL (0.6-1.0); GFR 32.9; POTASSIUM 3.7 mmol/L (3.5-5.1)
[2021-01-05 14:53] LABS: ALBUMIN 3.9 g/dL (3.4-5.0); ALBUMIN/GLOBULIN RATIO 1.4 (1.0-1.7); TOTAL BILIRUBIN 0.8 mg/dL (0.2-1.0); TOTAL PROTEIN 6.6 g/dL (6.4-8.2)
--- NOTE | 2021-01-05 15:30 | EKG ---
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
== END 2021-01-05 15:35 | disposition home or self-care (01) ==
LOC: ER 12:39
DX: I95.9 Hypotension, unspecified (principal); I25.10 Atherosclerotic heart disease of native coronary artery without angina pectoris; Z87.891 Personal history of nicotine dependence; Z86.79 Personal history of other diseases of the circulatory system
CPT/HCPCS: 36415; 71045; 80053; 83880; 84484; 85025; 93005; 99285-25

== ENCOUNTER → 2021-05-08 | Outpatient (CLI) | payer MEDICARE, OTHER ==
--- NOTE | 2021-05-08 10:13 | CARD ---
MR#: [id number] Date of Study: 05/08/2021 Ordering Physician: ASHLEY BERNSTEIN, Referring Physician: Ines COSTELLO: Jose Antonio Rodríguez [facility] APPROVED REPORT EXAM: Two-dimensional and M-mode echocardiogram with Doppler and color Doppler. Other Information Quality : FairHR: 73bpm Rhythm : NSR INDICATION Aortic Valve Disease Cardiac Disease: CAD Surgery/Intervention Status/Post Aortic Valve Replacement: Mechanical RISK FACTORS Hypertension Obesity Hyperlipidemia 2D DIMENSIONS Left Atrium(2D)3.8 (1.6-4.0cm)IVSd0.9 (0.7-1.1cm) Aortic Root(2D)3.3 (2.0-3.7cm)LVDd5.1 (3.9-5.9cm) LVOT Diameter1.7 (1.8-2.4cm)PWd0.9 (0.7-1.1cm) LVDs2.6 (2.5-4.0cm)FS (%) 48.1 % SV97.0 mlLVEF(%)79.3 (>50%) Aortic Valve AoV Peak Sanjeev.223.1cm/sAoV VTI48.3cm AO Peak GR.19.9mmHgLVOT Peak Sanjeev.110.7cm/s LVOT VTI 25.68cmAO Mean GR.10mmHg MARCO ANTONIO (VMAX)0.21rz6ADM (VTI)1.21cm2 Mitral Valve MV E Wdwflvqx59.1cm/sMV DECEL TDZQ051mb MV A Hwjztjqo541.1cm/sMV [id number] E/A Ratio0.6MVA (PHT)1.49cm2 TDI E/Lateral E'11.7E/Medial E'11.7 Pulmonary Valve PV Peak Tbtfrsyr31.7cm/sPV Peak Grad.3mmHg Tricuspid Valve TR P. Dzfpkfbj418ud/sTR Peak Gr.22mmHg Pulmonary Vein S1 Vddjgnvz92.8cm/sD2 Cqpymrrz73.7cm/s LEFT VENTRICLE The left ventricle is normal size. There is normal left ventricular wall thickness. The left ventricu lar systolic function is normal. The ejection fraction is 55-60%. There is normal LV segmental wall m otion. Transmitral Doppler flow pattern is Grade I-abnormal relaxation pattern. No left ventricle thr ombus noted on this study. There is no ventricular septal defect visualized. There is no left ventric ular aneurysm. There is no mass noted in the left ventricle. RIGHT VENTRICLE The right ventricle is normal size. There is normal right ventricular wall thickness. The right ventr icular systolic function is normal. ATRIA The left atrium is mildly dilated. The right atrium size is normal. The interatrial septum is intact with no evidence for an atrial septal defect or patent foramen ovale as noted on 2-D or Doppler imagi ng. AORTIC VALVE Doppler and Color Flow revealed trace aortic regurgitation. There is no significant aortic valvular s tenosis. There are no vegetations on this prosthetic aortic valve. There is a mechanical aortic valve prosthesis. The prosthetic aortic valve appears well seated. MITRAL VALVE Mitral annular calcification is moderate. The mitral valve is thickened but opens well. There is no e vidence of mitral valve prolapse. There is no mitral valve stenosis. Doppler and Color Flow revealed no mitral valve regurgitation noted. TRICUSPID VALVE The tricuspid valve is not well seen. Doppler and Color Flow revealed mild tricuspid regurgitation. T here is no tricuspid valve prolapse or vegetation. There is no tricuspid valve stenosis. PULMONIC VALVE Doppler and Color Flow revealed no pulmonic valvular regurgitation. There is no pulmonic valvular soniya nosis. GREAT VESSELS The aortic root is normal in size. The ascending aorta is normal in size. The IVC is normal in size a nd collapses >50% with inspiration. PERICARDIAL EFFUSION There is no pleural effusion. There is no evidence of significant pericardial effusion. Critical Notification Critical Value: No <Conclusion> The left ventricular systolic function is normal. The ejection fraction is 55-60%. There is normal LV segmental wall motion. Transmitral Doppler flow pattern is Grade I-abnormal relaxation pattern. The mechanical prosthetic aortic valve appears well seated and functioning well with mean gradient 10 mmHg. Mild tricuspid regurgitation. There is no evidence of significant pericardial effusion. Signed by : Ashley Bernstein, Electronically Approved : 05/08/2021 10:13:38
== END ==
LOC: ECHO 08:31
PROVIDERS: ATTEND Internal Medicine Cardiovascular Disease
DX: I08.1 Rheumatic disorders of both mitral and tricuspid valves (principal); Z95.2 Presence of prosthetic heart valve
CPT/HCPCS: 93306

== ENCOUNTER 2021-07-31 10:49 | Inpatient (IN) | payer MEDICARE, OTHER ==
[~2021-07-31] VITALS: Ht 157.5 cm; Wt 84.4 kg
[2021-07-31] MEDS ORDERED: IV RINGERS,LACTATED 1000ML 1,000 ML IV ONE (11:45)
[2021-07-31] MEDS ORDERED: traMADol 50 MG TABLET PO ONE (11:45)
--- NOTE | 2021-07-31 12:20 | RAD ---
EXAM: Bilateral knees, 3 views. HISTORY: Fall. COMPARISON: None. FINDINGS: 3 views of both knees are obtained. There is mild left medial compartment joint space narro wing and spurring. There is no significant joint effusion. There is no fracture, dislocation or sublu xation. 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 No acute osseous finding. Electronically signed by: Hafsa Prajapati MD (07/31/2021 12:18 PM) [id number]
[2021-07-31] MEDS ORDERED: hydrOXYzine 25 MG TABLET PO PRN (13:00)
[2021-07-31 13:32] LABS: BASO % 0 % (0-3); EOS % 1 % (0-3); HEMATOCRIT 39.1 % (36.0-47.0); HEMOGLOBIN 13.3 g/dL (12.0-15.5); LYMPH # 0.4 x10^3/uL (1.0-4.8); LYMPH % 13 % (24-48); MEAN CORPUSCULAR HEMOGLOBIN 31 pg (25-35); MEAN CORPUSCULAR HGB CONC 34 g/dL (31-37); MEAN CORPUSCULAR VOLUME 89 fL (79-100); MONO # 0.4 x10^3/uL (0.0-1.1); MONO % 14 % (0-9); NEUT # 2.2 x10^3/uL (1.8-7.7); NEUT % 73 % (31-73); PLATELET COUNT 84 x10^3/uL (140-400); RED BLOOD COUNT 4.37 x10^6/uL (3.50-5.40); RED CELL DISTRIBUTION WIDTH 14.9 % (11.5-14.5)
[2021-07-31 13:33] LABS: BILIRUBIN,URINE NEGATIVE (NEG); CLARITY,URINE CLEAR; COLOR,URINE YELLOW; NITRITE,URINE NEGATIVE (NEG); PROTEIN,URINE NEGATIVE (NEG-TRACE); UROBILINOGEN,URINE 0.2 mg/dL (0.2 mg/dL)
[2021-07-31 13:35] LABS: BACTERIA,URINE MODERATE /HPF (0-FEW); RBC,URINE 0 /HPF (0-2)
--- NOTE | 2021-07-31 13:38 | PHYS DOC ---
Past Medical History Past Medical History: Anxiety, CAD, Depression, High Cholesterol, Hypertension (MAREN CALI) Past Surgical History: Cancer Surgery, Coronary Bypass Surgery, Hysterectomy Additional Past Surgical Histo: COLON RESECTION r/t COLON CA, HEART STENTS, HEART VALVE (AMREN CALI) Smoking Status: Never Smoker Alcohol Use: None (MAREN CALI) General Adult EDM: Chief Complaint: MECHANICAL FALL HPI: HPI: Patient is a 85 year old female who presents with generalized body pain and altered mental status status post fall at assisted living. Patient's daughter is at bedside aids in providing history. Patient's daughter states that there was a "trail leading to the bathroom" at the patient's apartment. Patient states that she passed a bowel movement in the bathroom, and felt weak. She states that when she got onto the carpet, she fell to her knees and then onto her chest. She states she was not able to catch herself on her arms. Daughter states that patient recently moved to the assisted living facility and has felt anxious/depressed since then. Patient was recently placed on medication for this. Daughter states that the patient is "not herself" today and that she has been confused on what medication she takes when. Patient's daughter is concerned that she has a UTI. They deny fever, chills, abdominal pain, nausea, vomiting, dysuria, hematuria. (MAREN CALI) Review of Systems: Review of Systems: Constitutional: Denies fever, chills; reports generalized weakness Eyes: Denies change in visual acuity, visual field deficits or discharge HENT: Denies ear pain, nasal congestion or sore throat Respiratory: Denies cough or shortness of breath Cardiovascular: Denies chest pain, palpitations or edema GI: Denies abdominal pain, nausea, vomiting, bloody stools; reports diarrhea : Denies dysuria or hematuria Musculoskeletal: Denies back pain; reports generalized body pain Integument: Denies new rash or other skin lesion Neurologic: Denies headache, focal weakness or sensory changes; reports AMS (MAREN CALI) Heart Score: C/O Chest Pain: No (MAREN CALI) Current Medications: Current Medications Medications (Trade) Dose Ordered Sig/Kristopher Start Time Stop Time Status Last Admin Dose Admin Hydroxyzine HCl (Atarax) 50 mg PRN Q6HRS PRN 07/31/21 13:00 Ringer's Solution 1,000 ml @ 1,000 mls/hr 1X ONCE 07/31/21 11:45 07/31/21 12:44 DC Tramadol HCl (Ultram) 50 mg 1X ONCE 07/31/21 11:45 07/31/21 11:46 DC (MAREN CALI) Allergies: Allergies: Allergies Coded Allergies Type Severity Reaction Last Updated Verified No Known Drug Allergies 03/26/20 No (MAREN CALI) Physical Exam: PE: Constitutional: Well developed, well nourished, well groomed, no acute distress, non-toxic appearance appears fatigued. HENT: Normocephalic, atraumatic, bilateral external ears normal, oropharynx moist, nose normal. Eyes: PERRLA, EOMI, conjunctiva normal, no discharge. Neck: Normal range of motion, no step-off, no tenderness, supple, no stridor. Cardiovascular: Heart rate regular rhythm. Lungs & Thorax: Bilateral breath sounds clear to auscultation, equal thoracic expansion, no crepitus. Skin: Warm, dry, no erythema, psoriatic rash appreciated. Back: No step-off, no tenderness, no CVA tenderness. Extremities: Small superficial abrasion noted on left medial knee, no tenderness, pelvis stable, no cyanosis, no clubbing, ROM intact, no edema. Neurologic: Alert and oriented x4, sensory function grossly intact, motor function grossly intact including great toe dorsiflexion, no focal deficits noted. (MAREN CALI) Current Patient Data: Labs: Laboratory Tests Test 07/31/21 13:10 07/31/21 13:15 White Blood Count 3.0 x10^3/uL (4.0-11.0) Red Blood Count 4.37 x10^6/uL (3.50-5.40) Hemoglobin 13.3 g/dL (12.0-15.5) Hematocrit 39.1 % (36.0-47.0) Mean Corpuscular Volume 89 fL (79-100) Mean Corpuscular Hemoglobin 31 pg (25-35) Mean Corpuscular Hemoglobin Concent 34 g/dL (31-37) Red Cell Distribution Width 14.9 % (11.5-14.5) Platelet Count 84 x10^3/uL (140-400) Neutrophils (%) (Auto) 73 % (31-73) Lymphocytes (%) (Auto) 13 % (24-48) Monocytes (%) (Auto) 14 % (0-9) Eosinophils (%) (Auto) 1 % (0-3) Basophils (%) (Auto) 0 % (0-3) Neutrophils # (Auto) 2.2 x10^3/uL (1.8-7.7) Lymphocytes # (Auto) 0.4 x10^3/uL (1.0-4.8) Monocytes # (Auto) 0.4 x10^3/uL (0.0-1.1) Eosinophils # (Auto) 0.0 x10^3/uL (0.0-0.7) Basophils # (Auto) 0.0 x10^3/uL (0.0-0.2) Sodium Level 136 mmol/L (136-145) Potassium Level 4.0 mmol/L (3.5-5.1) Chloride Level 105 mmol/L (98-107) Carbon Dioxide Level 27 mmol/L (21-32) Anion Gap 4 (6-14) Blood Urea Nitrogen 28 mg/dL (7-20) Creatinine 1.5 mg/dL (0.6-1.0) Estimated GFR (Cockcroft-Gault) 32.9 BUN/Creatinine Ratio 19 (6-20) Glucose Level 110 mg/dL (70-99) Calcium Level 8.0 mg/dL (8.5-10.1) Magnesium Level 1.8 mg/dL (1.8-2.4) Total Bilirubin 0.7 mg/dL (0.2-1.0) Aspartate Amino Transf (AST/SGOT) 54 U/L (15-37) Alanine Aminotransferase (ALT/SGPT) 27 U/L (14-59) Alkaline Phosphatase 74 U/L (46-116) Troponin I High Sensitivity 29 ng/L (4-50) Total Protein 6.5 g/dL (6.4-8.2) Albumin 3.3 g/dL (3.4-5.0) Albumin/Globulin Ratio 1.0 (1.0-1.7) Urine Collection Type U cath Urine Color Yellow Urine Clarity Clear Urine pH 5.0 (<5.0-8.0) Urine Specific [place] 1.020 (1.000-1.030) Urine Protein Negative mg/dL (NEG-TRACE) Urine Glucose (UA) Negative mg/dL (NEG) Urine Ketones (Stick) Negative mg/dL (NEG) Urine Blood Negative (NEG) Urine Nitrite Negative (NEG) Urine Bilirubin Negative (NEG) Urine Urobilinogen Dipstick 0.2 mg/dL (0.2 mg/dL) Urine Leukocyte Esterase Negative (NEG) Urine RBC 0 /HPF (0-2) Urine WBC 1-4 /HPF (0-4) Urine Bacteria Moderate /HPF (0-FEW) Vital Signs: Vital Signs Date Time Temp Pulse Resp B/P (MAP) Pulse Ox O2 Delivery O2 Flow Rate FiO2 07/31/21 11:23 97.8 79 18 107/65 (79) 95 Room Air 97.8 (MAREN CALI) EKG: EKG: EKG Interpreted by Dr. Martinez at 1255: Regular rate and rhythm 76 bpm bpm with no ectopic beats. Right axis deviation with incomplete right bundle branch block. QT 418 ms/QTc 475 ms. No STEMI. (MAREN CALI) Radiology/Procedures: Radiology/Procedures: PROCEDURE: CT HEAD AND CERVICAL SPINE WO STUDY: CT head and cervical spine without contrast INDICATION: Fall. COMPARISON: CT head 12/25/2018 TECHNIQUE: Axial CT imaging through the head and cervical spine without the use of intravenous contrast. Sagittal and coronal reformats were obtained. One or more of the following individualized dose reduction techniques were utilized for this examination: 1. Automated exposure control 2. Adjustment of the mA and/or kV according to patient size 3. Use of iterative reconstruction technique. FINDINGS: CT head: No acute intracranial hemorrhage. Jack-white matter differentiation is maintained. Redemonstrated subcortical white matter hypoattenuation again most pronounced at the right frontal lobe as well as a calcification in the region of the right M1/M2 junction. No mass effect or midline shift. Unchanged ex vacuo prominence of the ventricular system. Intracranial calcific atherosclerosis. No depressed calvarial fracture. Paranasal sinus mucosal thickening. Normally aerated mastoid air cells and middle ears. CT cervical spine: Mild degenerative/rotational offset across the C1-C2 lateral mass articulations. Noting osteopenia no acute fracture. Multifactorial degenerative changes with osseous neural foraminal narrowing greatest bilaterally at C3-C4 and on the right at C5-C6. Central canal stenosis favored greatest at C3-C4 and could be moderate. Calcific atherosclerosis most dense around the carotid bifurcations. Uncertain degree of resultant stenosis. No paraspinous hematoma. No large thyroid nodule. No apical pneumothorax. IMPRESSION: CT head: 1. No acute intracranial abnormality by CT. 2. Chronic/senescent observations as discussed above. CT cervical spine: 1. No acute fracture or traumatic malalignment. 2. Multifactorial degenerative changes collectively greatest at C3-C4 and C5- C6. 3. Carotid calcific atherosclerosis greatest at the bifurcations. Eventual Duplex ultrasound evaluation could be performed to exclude a hemodynamically significant stenosis. Electronically signed by: BENY PATRICK MD (07/31/2021 2:54 PM) [facility] PROCEDURE: CT CHEST WO CONTRAST STUDY: CT chest without contrast INDICATION: Fall. COMPARISON: None. TECHNIQUE: Helical CT imaging of the chest performed without the use of intravenous contrast. Sagittal and coronal reformats were obtained. One or more of the following individualized dose reduction techniques were utilized for this examination: 1. Automated exposure control 2. Adjustment of the mA and/or kV according to patient size 3. Use of iterative reconstruction technique. FINDINGS: Lungs: Basilar predominant groundglass opacities. Background interlobular septal thickening. No pleural effusion or pneumothorax. Vasculature: Coronary artery bypass grafting and aortic valve prosthesis. Dense mitral annular mineralization. Diffusely calcified [place] coronary arteries aneurysmal dilatation of the ascending aorta measuring 5.2 x 4.8 cm at the mid aspect. Incomplete evaluation for potential stenoses at the great vessel and abdominal aortic branch origins. The heart is enlarged. Mediastinum/art: Several mediastinal and hilar lymph nodes measure a centimeter or greater short axis. The largest lymph node is medial to the bronchus intermedius measuring approximately 1.6 cm AP. Neck/axilla/chest wall: Unremarkable thyroid and axilla. Bones: Osteopenia. Vertebral body height is maintained. No traumatic listhesis or facet malalignment. Intact shoulders. No displaced rib fracture. Upper abdomen: Mild enlargement of the spleen. Small incompletely characterized adrenal gland nodule on the right, image 56 series 2 measuring 1 cm. Gallstones. Mild asymmetric elevation of the right hemidiaphragm. Ovoid focus within the liver above the gallbladder fossa, image 60 series 2, measuring 3.7 x 2.8 x 3.2 cm. Intermediate internal density. Circumscribed margins. IMPRESSION: 1. No sequela of osseous or soft tissue trauma seen throughout the chest. 2. Extensive calcific atherosclerosis. Diffusely calcified [place] coronary arteries in the setting of previous CABG. 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 3. Multifocal groundglass airspace infiltrates with a basilar predilection. The appearance is nonspecific but raises concern for an atypical/viral pneumonia. Atelectasis, fibrosis, interstitial/alveolar edema and other etiologies could contribute to the appearance. Correlation is needed with patient history and symptoms to help differentiate. 4. Ovoid intermediate density focus within the right hepatic lobe measuring 3.7 x 2.8 x 3.2 cm. This is incompletely characterized but a benign consideration is a hemangioma. Correlation with any outside imaging would be useful to confirm stability. If none are obtainable ultrasound evaluation is recommended. 5. Small right adrenal gland nodule measuring 1 cm which is indeterminate based on density. Correlate with outside imaging as well, if available. 6. Mild splenomegaly. 7. Several mildly enlarged mediastinal and hilar lymph nodes. A reactive etiology is felt most likely given the appearance of the lungs unless there is any pertinent medical history that would suggest otherwise. Electronically signed by: BENY PATRICK MD (07/31/2021 3:12 PM) [facility] PROCEDURE: KNEE BILAT 3V EXAM: Bilateral knees, 3 views. HISTORY: Fall. COMPARISON: None. FINDINGS: 3 views of both knees are obtained. There is mild left medial compartment joint space narrowing and spurring. There is no significant joint effusion. There is no fracture, dislocation or subluxation. 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 No acute osseous finding. Electronically signed by: Hafsa Prajapati MD (07/31/2021 12:18 PM) [id number] PROCEDURE: DOPPLER CAROTID BILAT EXAM: Bilateral carotid duplex with waveform analysis. CLINICAL HISTORY: Reason: stenosis seen on CT / Spl. Instructions: / History: . . TECHNIQUE: Longitudinal and transverse sonographic images of the bilateral carotid arteries was performed utilizing grayscale, color and spectral Doppler techniques. COMPARISON: CT 07/31/2021 FINDINGS: Right Carotid: Plaque at the carotid bifurcation Left Carotid: Plaque at the carotid bifurcation Vertebrals: Antegrade flow bilaterally. Right: PSV CCA (cm/s): 82 PSV ICA (cm/s): 118 EDV ICA (cm/s): 37 PSV ECA (cm/s): 74 ICA/CCA Ratio: 1.4 Left: PSV CCA (cm/s): 7 PSV ICA (cm/s): 214 EDV ICA (cm/s): 54 PSV ECA (cm/s): 367 ICA/CCA Ratio: 3.8 IMPRESSION: 1. Plaque at the left carotid bifurcation causing greater than 70% stenosis. 2. Plaque at the right carotid bifurcation without significant stenosis. Consensus Panel Jack-scale and Doppler US Criteria for Diagnosis of ICA Stenosis Degree of Stenosis (%) ICA PSV (Cm/sec) Plaque Estimate (%)* Normal <125 None <50 <125 <50 50-69 125-230 >50 >70 but < near occlusion >230 >50 Near occlusion High, low, or undetectable Visible Total occlusion Undetectable Visible, no detectable lumen *Plaque estimate (diameter reduction) with jack-scale and color Doppler US Degree of Stenosis (%) ICA/CCA PSV Ratio ICA EDV (cm/sec) Normal <2.0 <40 <50 <2.0 <40 50-69 2.0-4.0 40-100 >70 but < near occlusion >4.0 >100 Near occlusion Variable Variable Total occlusion Not applicable Not applicable Electronically signed by: Elise Weber MD (07/31/2021 4:22 PM) [facility] (MAREN CALI) Course & Med Decision Making: Course & Med Decision Making Pertinent Labs and Imaging studies reviewed. (See chart for details) She is an 85-year-old female presenting from assisted living status post fall today. Patient's daughter is at bedside and states the patient has been more weak, confused and overall "not herself." Patient complains of generalized body pain, but cannot give any specifics on where she feels pain, or if 1 area of her body hurts over others. Work-up today will include CT head and neck without contrast, CT chest with contrast, labs, urinalysis. Patient provided p.o. pain management. Patient's kidney function is impaired, so CT chest will be performed without contrast as well. Nursing staff may be aware that the patient is feeling quite anxious, and her daughter states that this is common for her in a hospital setting. Patient provided with hydroxyzine. Patient continues to be anxious and complains of back pain secondary to the hospital bed and her positioning. Patient's daughter states the patient keeps getting up and seems to have persistent anxiety feeling. Patient provided with IV Ativan and fentanyl. CT images reveal carotid stenosis bilaterally as well as groundglass appearance to the lungs. Patient will be admitted to the hospital for altered mental status as well as carotid stenosis. Doppler ultrasound of bilateral carotids ordered. Spoke to Dr. Marin with vascular surgery, who agrees to see the patient during her stay. Patient was gladly accepted for admission by Dr. Mayfield, hospitalist. (MAREN CALI) Dragon Disclaimer: Kim Disclaimer: This electronic medical record was generated, in whole or in part, using a voice recognition dictation system. (MAREN CALI) Departure Departure Impression: Primary Impression: Carotid stenosis, symptomatic w/o infarct Qualified Codes: I65.23 - Occlusion and stenosis of bilateral carotid arteries Additional Impressions: AMS (altered mental status) Qualified Codes: R41.0 - Disorientation, unspecified COVID-19 virus infection Disposition: ADMITTED INPATIENT Admitting Physician: JADON Lezama) (MAREN CALI) Condition: GUARDED Referrals: JEANNIE MAGALLANES (PCP) Attending Signature Attending Signature I have reviewed the PA/RACK CLEANER's note and plan of care. I was available for consultation as needed during the patient's visit in the emergency department. I agree with the clinical impression, plan, and disposition. (BEATRIZ MARTINEZ DO) MAREN CALI Jul 31, 2021 13:38 BEATRIZ MARTINEZ DO Aug 01, 2021 11:11
[2021-07-31 13:41] LABS: CREATININE 1.5 mg/dL (0.6-1.0); GFR 32.9
[2021-07-31 13:46] LABS: ALBUMIN 3.3 g/dL (3.4-5.0); MAGNESIUM 1.8 mg/dL (1.8-2.4); TOTAL BILIRUBIN 0.7 mg/dL (0.2-1.0); TOTAL PROTEIN 6.5 g/dL (6.4-8.2)
--- NOTE | 2021-07-31 13:54 | EKG ---
[facility] [address] [place] [address] Test Date: 2021-07-31 Test Time: 12:52:54 Pat Name: ILANA LOZANO Department: Room: Gender: F [employer] Console Operator: [id number] : 1935 Requested By: MAREN CALI Order Number: [id number] Reading MD: Rasta Bernstein Measurements Intervals [place] Rate: 76 P: -42 OK: 194 QRS: 112 QRSD: 72 T: 2 QT: 418 QTc: 475 Interpretive Statements SINUS RHYTHM PROLONGED QT Electronically Signed On 08-02-2021 9:27:45 HVAC PROJECT ENGINEER by Rasta Bernstein
[2021-07-31] MEDS ORDERED: fentaNYL PF VIAL 100 MCG/2 ML VIAL IVP ONE (14:45)
--- NOTE | 2021-07-31 14:57 | RAD ---
STUDY: CT head and cervical spine without contrast INDICATION: Fall. COMPARISON: CT head 12/25/2018 TECHNIQUE: Axial CT imaging through the head and cervical spine without the use of intravenous contra st. Sagittal and coronal reformats were obtained. One or more of the following individualized dose reduction techniques were utilized for this examinat ion: 1. Automated exposure control 2. Adjustment of the mA and/or kV according to patient size 3. Use of iterative reconstruction technique. FINDINGS: CT head: No acute intracranial hemorrhage. Jack-white matter differentiation is maintained. Redemonstrated sub cortical white matter hypoattenuation again most pronounced at the right frontal lobe as well as a ca lcification in the region of the right M1/M2 junction. No mass effect or midline shift. Unchanged ex vacuo prominence of the ventricular system. Intracranial calcific atherosclerosis. No depressed calvarial fracture. Paranasal sinus mucosal thickening. Normally aerated mastoid air xiomara ls and middle ears. CT cervical spine: Mild degenerative/rotational offset across the C1-C2 lateral mass articulations. Noting osteopenia no acute fracture. Multifactorial degenerative changes with osseous neural foraminal narrowing greatest bilaterally at C3-C4 and on the right at C5-C6. Central canal stenosis favored greatest at C3-C4 and could be moderate. Calcific atherosclerosis most dense around the carotid bifurcations. Uncertain degree of resultant st enosis. No paraspinous hematoma. No large thyroid nodule. No apical pneumothorax. IMPRESSION: CT head: 1. No acute intracranial abnormality by CT. 2. Chronic/senescent observations as discussed above. CT cervical spine: 1. No acute fracture or traumatic malalignment. 2. Multifactorial degenerative changes collectively greatest at C3-C4 and C5-C6. 3. Carotid calcific atherosclerosis greatest at the bifurcations. Eventual Duplex ultrasound evaluat ion could be performed to exclude a hemodynamically significant stenosis. Electronically signed by: BENY PATRICK MD (07/31/2021 2:54 PM) [facility]
--- NOTE | 2021-07-31 15:14 | RAD ---
STUDY: CT chest without contrast INDICATION: Fall. COMPARISON: None. TECHNIQUE: Helical CT imaging of the chest performed without the use of intravenous contrast. Sagitta l and coronal reformats were obtained. One or more of the following individualized dose reduction techniques were utilized for this examinat ion: 1. Automated exposure control 2. Adjustment of the mA and/or kV according to patient size 3. Use of iterative reconstruction technique. FINDINGS: Lungs: Basilar predominant groundglass opacities. Background interlobular septal thickening. No pleur al effusion or pneumothorax. Vasculature: Coronary artery bypass grafting and aortic valve prosthesis. Dense mitral annular minera lization. Diffusely calcified [place] coronary arteries aneurysmal dilatation of the ascending aorta m easuring 5.2 x 4.8 cm at the mid aspect. Incomplete evaluation for potential stenoses at the great ve ssel and abdominal aortic branch origins. The heart is enlarged. Mediastinum/art: Several mediastinal and hilar lymph nodes measure a centimeter or greater short axi s. The largest lymph node is medial to the bronchus intermedius measuring approximately 1.6 cm AP. Neck/axilla/chest wall: Unremarkable thyroid and axilla. Bones: Osteopenia. Vertebral body height is maintained. No traumatic listhesis or facet malalignment. Intact shoulders. No displaced rib fracture. Upper abdomen: Mild enlargement of the spleen. Small incompletely characterized adrenal gland nodule on the right, image 56 series 2 measuring 1 cm. Gallstones. Mild asymmetric elevation of the right he midiaphragm. Ovoid focus within the liver above the gallbladder fossa, image 60 series 2, measuring 3 .7 x 2.8 x 3.2 cm. Intermediate internal density. Circumscribed margins. IMPRESSION: 1. No sequela of osseous or soft tissue trauma seen throughout the chest. 2. Extensive calcific atherosclerosis. Diffusely calcified [place] coronary arteries in the setting o f previous CABG. 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 3. Multifocal groundglass airspace infiltrates with a basilar predilection. The appearance is nonspe cific but raises concern for an atypical/viral pneumonia. Atelectasis, fibrosis, interstitial/alveola r edema and other etiologies could contribute to the appearance. Correlation is needed with patient h istory and symptoms to help differentiate. 4. Ovoid intermediate density focus within the right hepatic lobe measuring 3.7 x 2.8 x 3.2 cm. This is incompletely characterized but a benign consideration is a hemangioma. Correlation with any outsi de imaging would be useful to confirm stability. If none are obtainable ultrasound evaluation is tyrese mmended. 5. Small right adrenal gland nodule measuring 1 cm which is indeterminate based on density. Correlat e with outside imaging as well, if available. 6. Mild splenomegaly. 7. Several mildly enlarged mediastinal and hilar lymph nodes. A reactive etiology is felt most likel y given the appearance of the lungs unless there is any pertinent medical history that would suggest otherwise. Electronically signed by: BENY PATRICK MD (07/31/2021 3:12 PM) [facility]
--- NOTE | 2021-07-31 16:25 | RAD ---
EXAM: Bilateral carotid duplex with waveform analysis. CLINICAL HISTORY: Reason: stenosis seen on CT / Spl. Instructions: / History: . . TECHNIQUE: Longitudinal and transverse sonographic images of the bilateral carotid arteries was perfo rmed utilizing grayscale, color and spectral Doppler techniques. COMPARISON: CT 07/31/2021 FINDINGS: Right Carotid: Plaque at the carotid bifurcation Left Carotid: Plaque at the carotid bifurcation Vertebrals: Antegrade flow bilaterally. Right: PSV CCA (cm/s): 82 PSV ICA (cm/s): 118 EDV ICA (cm/s): 37 PSV ECA (cm/s): 74 ICA/CCA Ratio: 1.4 Left: PSV CCA (cm/s): 7 PSV ICA (cm/s): 214 EDV ICA (cm/s): 54 PSV ECA (cm/s): 367 ICA/CCA Ratio: 3.8 IMPRESSION: 1. Plaque at the left carotid bifurcation causing greater than 70% stenosis. 2. Plaque at the right carotid bifurcation without significant stenosis. Consensus Panel Jack-scale and Doppler US Criteria for Diagnosis of ICA Stenosis Degree of Stenosis (%) ICA PSV (Cm/sec) Plaque Estimate (%)* Normal <125 None <50 <125 <50 50-69 125-230 >50 >70 but < near occlusion >230 >50 Near occlusion High, low, or undetectable Visible Total occlusion Undetectable Visible, no detectable lumen *Plaque estimate (diameter reduction) with jack-scale and color Doppler US Degree of Stenosis (%) ICA/CCA PSV Ratio ICA EDV (cm/sec) Normal <2.0 <40 <50 <2.0 <40 50-69 2.0-4.0 40-100 >70 but < near occlusion >4.0 >100 Near occlusion Variable Variable Total occlusion Not applicable Not applicable Electronically signed by: Elise Weber MD (07/31/2021 4:22 PM) [facility]
[2021-07-31] MEDS ORDERED: ACETAMINOPHEN 325 MG TABLET. PO PRN (16:30)
--- NOTE | 2021-07-31 17:07 | PDOC ---
Provider Note Date of Service: DATE: 07/31/21 TIME: 17:03 Provider Note (Please see full dictation for details.) She is an 85-year-old female with hypertension, hyperlipidemia, coronary artery disease, and valvular heart disease on chronic anticoagulation who presented after a fall. She reports that she was walking from the bathroom going from a hard surface to carpet when she fell. She denies any unilateral weakness/numbness, vision loss, speech changes, or other lateralizing TIA or stroke symptoms prior to or after her fall. She does not remember immediately after the fall. She denies any pain at this time. She reports that the fall was a few days ago. She denies any previous history of stroke. Carotid ultrasound showed moderate to severe (approximately 70%) left internal carotid artery stenosis with no significant right internal carotid artery stenosis. CT of the head showed no obvious evidence of stroke. I discussed the ultrasound findings with her. It is unclear whether the left carotid artery stenosis has contributed to her recent fall. Her COPD, heart disease, and previous valve replacement increased risk of perioperative complications. I discussed options of care for her carotid disease including medical management alone or with carotid intervention (endarterectomy or stenting). Would not be aggressive toward carotid intervention (endarterectomy or stenting) unless she has symptomatic lesion. Would continue good medical management with blood pressure and cholesterol control as well as anticoagulation for her aortic valve replacement. Justifications for Admission Other Justification SLOAN DEXTER MD Jul 31, 2021 17:07
[2021-07-31 19:30] VITALS: BP 145/53
--- NOTE | 2021-07-31 22:43 | HP ---
DATE OF SERVICE: 07/31/2021 ADMIT DATE: 07/31/2021 CHIEF COMPLAINT: Fall, weakness, mental status change. HISTORY OF PRESENT ILLNESS: The patient is a pleasant 85-year-old female who recently moved into a assisted care facility. Apparently, she got weak and fell. She states she could not get back to her feet. Daughter states ____ "trailing to the bathroom." Apparently when she did get to the bathroom, she did have a bowel movement, but then just simply could not get back out of the bathroom. The daughter was concerned she had a UTI. The patient came to the hospital for evaluation. She does not have a UTI, but her carotid imaging is showing bilateral carotid disease. I discussed the case with ER physician and Dr. Montes De Oca, who is here in the ER. We are going to admit the patient and consult Dr. Montes De Oca of the Vascular Surgery service. PAST MEDICAL HISTORY: CAD, coronary bypass surgery, hysterectomy, back surgery, anxiety, depression, hyperlipidemia, hypertension, colon resection, colon cancer, cardiac stents, valvular heart disease with valve replacement. ALLERGIES: None. FAMILY HISTORY: Coronary artery disease. SOCIAL HISTORY: She is retired. She does not drink, smoke or take drugs. She just moved into assisted care. MEDICATIONS: Reviewed, please refer to the MRAD. REVIEW OF SYSTEMS: Unable to obtain. The patient is too confused. PHYSICAL EXAMINATION: VITALS: Within normal limits and are stable. GENERAL: She is pleasantly confused. HEENT: Normal cephalic atraumatic, external auditory canals are patent. EYES: Extraocular muscles are intact, pupils are equally round and reactive to light and accommodation. MUSCULOSKELETAL: Well developed, well nourished, good range of motion. ENDOCRINE: No thyromegaly was palpated. LYMPHATICS: No cervical chain or axillary nodes were noted. HEMATOPOIETIC: No bruising. NECK: Supple, no JVD, no thyromegaly was noted. LUNGS: Clear to auscultation in all lung ayala without rhonchi or wheezing. HEART: RRR, S1, S2 present. Peripheral pulses intact, no obvious murmurs were noted. ABDOMEN: Soft, nontender. Positive bowel sounds no organomegaly, normal bowel sounds. EXTREMITIES: Without any cyanosis, clubbing, or edema. Pedal pulses intact, Homans sign is negative. NEUROLOGIC: She is pleasantly confused. PSYCHIATRIC: She is pleasantly confused. SKIN: No ulcerations or rashes, good skin turgor, no jaundice. VASCULAR: Good capillary refill, neurovascular bundle appears to be intact. LABORATORY DATA: White count is 3, hemoglobin 13, platelets 84. Electrolytes are normal other than a BUN of 28, creatinine 1.5. Urinalysis negative. ASSESSMENT AND PLAN: Bilateral carotid disease, azotemia, chronic renal insufficiency, leukopenia. The patient has been admitted. We will consult Vascular Surgery, consult Nephrology. IV fluids, home meds. DVT prophylaxis. Full code. Cardiac monitoring. We are ruling out COVID-19. P.r.n. Tylenol. I consulted social service technician for possible residential. LUIS CARLOS DR: Nadeem TID: [phone]
[2021-07-31 23:22] VITALS: BP 124/57
[2021-08-01 03:45] VITALS: BP 145/77
[2021-08-01] MEDS ORDERED: CHOL10004 PO (05:00)
[2021-08-01] MEDS ORDERED: FAMO40TA4 PO (05:00)
[2021-08-01] MEDS ORDERED: [UNRECOGNIZED DRUG - CODE] TP (05:00)
[2021-08-01] MEDS ORDERED: MUPI22OI2 TP (05:00)
[2021-08-01] MEDS ORDERED: ALPR0.5T PO (05:58)
[2021-08-01] MEDS ORDERED: ZOLPIDEM 5 MG TABLET. PO PRN (06:00)
[2021-08-01 07:00] VITALS: BP 218/93
[2021-08-01] MEDS: FAMOTIDINE 20 MG TABLET. PO SCH (08:52)
[2021-08-01] MEDS: hydroCHLOROthiazide 12.5 MG CAPSULE PO SCH (08:52)
[2021-08-01] MEDS: DONEPEZIL HCL 10 MG TABLET. PO SCH (08:52)
[2021-08-01] MEDS: CHOLECALCIFEROL (VITAMIN D3) 1,000 UNIT TABLET PO SCH (08:52)
[2021-08-01] MEDS: ASPIRIN ENTERIC COATED 81 MG TABLET.DR. PO SCH (08:52)
[2021-08-01] MEDS: MEMANTINE 10 MG TABLET. PO SCH ×2 (08:53→23:31)
[2021-08-01] MEDS: LOSARTAN POTASSIUM 50 MG TABLET. PO SCH (08:53)
[2021-08-01] MEDS: CETIRIZINE HCL 10 MG TABLET. PO SCH (08:53)
[2021-08-01] MEDS: MUPIROCIN 2 % OINTMENT 22GM TUBE. TP SCH ×3 (08:53→23:35)
[2021-08-01] MEDS: ALPRAZolam 0.5 MG TABLET PO PRN ×2 (08:54→18:04)
[2021-08-01] MEDS: HYDROCORTISONE 1% LOTION BOTTLE. TP SCH ×2 (08:54→09:00)
[2021-08-01 10:05] LABS: PROTHROMBIN TIME PATIENT 19.2 SEC (11.7-14.0)
[2021-08-01 10:30] VITALS: BP 171/74
--- NOTE | 2021-08-01 11:35 | PDOC2 ---
CONSULT Date of Consult Date of Consult DATE: 08/01/21 TIME: 11:35 Reason for Consult Reason for Consult: CRI Identification/Chief Complaint Chief Complaint " states feeling ok Source Source: Chart review, Patient History of Present Illness Reason for Visit: Patient is a 85-year-old CF who recently moved into a assisted care facility . Poor Historian History Obtained from Hospitalist's HPI - "she got weak and fell and could not get back to her feet. The patient came to the hospital for evaluation." She denies any N/V. No CP or SOB. No F/C. No dysuria/hematuria- but daughter felt she could have UTI She denies any Cough . No abdominal pain Past Medical History Past Medical History CAD, coronary bypass surgery, hysterectomy, back surgery,anxiety, depression, hyperlipidemia, hypertension, colon resection, colon cancer, cardiac stents, valvular heart disease with valve replacement. Family History Family History Coronary artery disease. Social History Social History She is retired. She does not drink, smoke or take drugs. She just moved into assisted care. Current Problem List Problem List Problems Medical Problems: (1) AMS (altered mental status) Status: Acute (2) Carotid stenosis, symptomatic w/o infarct Status: Acute (3) COVID-19 virus infection Status: Acute Current Medications Current Medications Current Medications Ringer's Solution 1,000 ml @ 1,000 mls/hr 1X ONCE IV Last administered on 07/31/21at 13:10; Start 07/31/21 at 11:45; Stop 07/31/21 at 12:44; Status DC Tramadol HCl (Ultram) 50 mg 1X ONCE PO Last administered on 07/31/21at 11:45; Start 07/31/21 at 11:45; Stop 07/31/21 at 11:46; Status DC Hydroxyzine HCl (Atarax) 50 mg PRN Q6HRS PRN PO ITCHING Last administered on 07/31/21at 13:26; Start 07/31/21 at 13:00 Lorazepam (Ativan Inj) 0.5 mg 1X ONCE IVP Last administered on 07/31/21at 14:45; Start 07/31/21 at 14:45; Stop 07/31/21 at 14:46; Status DC Fentanyl Citrate (Fentanyl 2ml Vial) 50 mcg 1X ONCE IVP Last administered on 07/31/21at 14:45; Start 07/31/21 at 14:45; Stop 07/31/21 at 14:46; Status DC Acetaminophen (Tylenol) 650 mg PRN Q4HRS PRN PO FEVER > 100.3'F; Start 07/31/21 at 16:30; Stop 08/01/21 at 16:29 Aspirin (Ecotrin) 81 mg DAILY PO Last administered on 08/01/21at 08:52; Start 08/01/21 at 09:00 Atorvastatin Calcium (Lipitor) 40 mg HS PO ; Start 08/01/21 at 21:00 Cetirizine HCl (ZyrTEC) 10 mg DAILY PO Last administered on 08/01/21 08:53; Start 08/01/21 at 09:00 Vitamin D (Vitamin D3) 2,000 unit DAILY PO Last administered on 08/01/21at 08:52; Start 08/01/21 at 09:00 Donepezil HCl (Aricept) 10 mg DAILY PO Last administered on 08/01/21at 08:52; Start 08/01/21 at 09:00 Hydrochlorothiazide (Microzide) 12.5 mg DAILY PO Last administered on 08/01/21at 08:52; Start 08/01/21 at 09:00 Memantine (Namenda) 10 mg BID PO Last administered on 08/01/21at 08:53; Start 08/01/21 at 09:00 Mupirocin (Bactroban) 1 kayden TID TP Last administered on 08/01/21at 08:53; Start 08/01/21 at 09:00 Warfarin Sodium (Coumadin) 7 mg DAILYWSUP PO ; Start 08/01/21 at 17:00; Status UNV Zolpidem Tartrate (Ambien) 5 mg PRN QHS PRN PO INSOMNIA, MAY REPEAT X1; Start 08/01/21 at 06:00 Famotidine (Pepcid) 40 mg DAILY PO Last administered on 08/01/21at 08:52; Start 08/01/21 at 09:00 Hydrocortisone (Cortizone-10) 1 kayden DAILY TP ; Start 08/01/21 at 09:00 Losartan Potassium (Cozaar) 100 mg DAILY PO Last administered on 08/01/21at 08:53; Start 08/01/21 at 09:00 Alprazolam (Xanax) 0.5 mg PRN Q6HRS PRN PO ANXIETY / AGITATION Last administered on 08/01/21at 08:54; Start 08/01/21 at 06:15 Active Scripts Active Reported Xanax (Alprazolam) 0.5 Mg Tablet 0.5 Mg PO PRN Q6HRS PRN Vitamin D3 (Vitamin D) 25 Mcg Tablet 25 Mcg PO DAILY 1,000 UNITS = 25 MCG Mupirocin Ointment (Mupirocin) 22 Gm Oint...g. 1 Kayden TP TID Fluocinolone Acetonide 118.28 Ml Oil 118.28 Ml TP DAILY Famotidine 40 Mg Tablet 40 Mg PO DAILY Aspirin Ec (Aspirin) 81 Mg Tablet.dr 1 Tab PO DAILY 14 Days Donepezil Hcl 10 Mg Tablet 1 Tab PO DAILY Micardis (Telmisartan) 80 Mg Tablet 1 Tab PO DAILY Cetirizine Hcl 10 Mg Tablet 1 Tab PO DAILY Zolpidem Tartrate 5 Mg Tablet 10 Mg PO PRN QHS PRN Hydrochlorothiazide Capsule (Hydrochlorothiazide) 12.5 Mg Capsule 12.5 Mg PO DAILY Atorvastatin Calcium 40 Mg Tablet 40 Mg PO HS Namenda (Memantine Hcl) 10 Mg Tablet 10 Mg PO BID Warfarin Sodium 7.5 Mg Tablet 7 Mg PO DAILYWSUP Allergies Allergies: Coded Allergies: No Known Drug Allergies (Unverified , 03/26/20) ROS Review of System As per HPI, rest of the ROS is negative Physical Exam Physical Exam GENERAL: NAD HEENT: Normal cephalic atraumatic, OM moist NECK: Supple LUNGS: Clear to auscultation , Non labored HEART: RRR, S1, S2 present. ABDOMEN: Soft, nontender. Positive bowel sounds EXTREMITIES: Without any cyanosis, clubbing, or edema. NEUROLOGIC: confused. PSYCHIATRIC: confused. SKIN: No ulcerations or rashes No Altman, No CVA or SP tenderness Vital Signs Vital Signs Date Time Temp Pulse Resp B/P (MAP) Pulse Ox O2 Delivery O2 Flow Rate FiO2 08/01/21 10:30 98.5 87 18 171/74 (106) 95 Room Air 98.5 Assessment & Plan CKD stage 3 B - Baseline Creatine per [facility] records 1.4-1.5 since 2019 . No prior labs available .UA unremarkable E-Lytes stable. Maintain Fluid balance, supportive care, I/O, avoid nephrotoxins Fall -History POA- defer to primary . Carotid ultrasound moderate to severe (approximately 70%) left internal carotid artery stenosis with no significant right internal carotid artery stenosis. CT of the head showed no obvious evidence of stroke.Vascular consulted Hypertension - primary managing . On ARB and Thiazide Hx of Coronary artery disease Hx of valvular heart disease on chronic anticoagulation. Discharge per primary. Recommned fu with Nephrology after dc- Routine Labs Labs Laboratory Tests Test 07/31/21 13:10 07/31/21 13:15 07/31/21 16:45 08/01/21 09:32 White Blood Count 3.0 x10^3/uL (4.0-11.0) Red Blood Count 4.37 x10^6/uL (3.50-5.40) Hemoglobin 13.3 g/dL (12.0-15.5) Hematocrit 39.1 % (36.0-47.0) Mean Corpuscular Volume 89 fL (79-100) Mean Corpuscular Hemoglobin 31 pg (25-35) Mean Corpuscular Hemoglobin Concent 34 g/dL (31-37) Red Cell Distribution Width 14.9 % (11.5-14.5) Platelet Count 84 x10^3/uL (140-400) Neutrophils (%) (Auto) 73 % (31-73) Lymphocytes (%) (Auto) 13 % (24-48) Monocytes (%) (Auto) 14 % (0-9) Eosinophils (%) (Auto) 1 % (0-3) Basophils (%) (Auto) 0 % (0-3) Neutrophils # (Auto) 2.2 x10^3/uL (1.8-7.7) Lymphocytes # (Auto) 0.4 x10^3/uL (1.0-4.8) Monocytes # (Auto) 0.4 x10^3/uL (0.0-1.1) Eosinophils # (Auto) 0.0 x10^3/uL (0.0-0.7) Basophils # (Auto) 0.0 x10^3/uL (0.0-0.2) Sodium Level 136 mmol/L (136-145) Potassium Level 4.0 mmol/L (3.5-5.1) Chloride Level 105 mmol/L (98-107) Carbon Dioxide Level 27 mmol/L (21-32) Anion Gap 4 (6-14) Blood Urea Nitrogen 28 mg/dL (7-20) Creatinine 1.5 mg/dL (0.6-1.0) Estimated GFR (Cockcroft-Gault) 32.9 BUN/Creatinine Ratio 19 (6-20) Glucose Level 110 mg/dL (70-99) Calcium Level 8.0 mg/dL (8.5-10.1) Magnesium Level 1.8 mg/dL (1.8-2.4) Total Bilirubin 0.7 mg/dL (0.2-1.0) Aspartate Amino Transf (AST/SGOT) 54 U/L (15-37) Alanine Aminotransferase (ALT/SGPT) 27 U/L (14-59) Alkaline Phosphatase 74 U/L (46-116) Troponin I High Sensitivity 29 ng/L (4-50) Total Protein 6.5 g/dL (6.4-8.2) Albumin 3.3 g/dL (3.4-5.0) Albumin/Globulin Ratio 1.0 (1.0-1.7) Urine Collection Type U cath Urine Color Yellow Urine Clarity Clear Urine pH 5.0 (<5.0-8.0) Urine Specific [place] 1.020 (1.000-1.030) Urine Protein Negative mg/dL (NEG-TRACE) Urine Glucose (UA) Negative mg/dL (NEG) Urine Ketones (Stick) Negative mg/dL (NEG) Urine Blood Negative (NEG) Urine Nitrite Negative (NEG) Urine Bilirubin Negative (NEG) Urine Urobilinogen Dipstick 0.2 mg/dL (0.2 mg/dL) Urine Leukocyte Esterase Negative (NEG) Urine RBC 0 /HPF (0-2) Urine WBC 1-4 /HPF (0-4) Urine Bacteria Moderate /HPF (0-FEW) SARS-CoV-2 Antigen (Rapid) Positive (NEGATIVE) Prothrombin Time 19.2 SEC (11.7-14.0) Prothromb Time International Ratio 1.6 (0.8-1.1) Laboratory Tests Test 07/31/21 13:10 07/31/21 13:15 07/31/21 16:45 08/01/21 09:32 White Blood Count 3.0 x10^3/uL (4.0-11.0) Red Blood Count 4.37 x10^6/uL (3.50-5.40) Hemoglobin 13.3 g/dL (12.0-15.5) Hematocrit 39.1 % (36.0-47.0) Mean Corpuscular Volume 89 fL (79-100) Mean Corpuscular Hemoglobin 31 pg (25-35) Mean Corpuscular Hemoglobin Concent 34 g/dL (31-37) Red Cell Distribution Width 14.9 % (11.5-14.5) Platelet Count 84 x10^3/uL (140-400) Neutrophils (%) (Auto) 73 % (31-73) Lymphocytes (%) (Auto) 13 % (24-48) Monocytes (%) (Auto) 14 % (0-9) Eosinophils (%) (Auto) 1 % (0-3) Basophils (%) (Auto) 0 % (0-3) Neutrophils # (Auto) 2.2 x10^3/uL (1.8-7.7) Lymphocytes # (Auto) 0.4 x10^3/uL (1.0-4.8) Monocytes # (Auto) 0.4 x10^3/uL (0.0-1.1) Eosinophils # (Auto) 0.0 x10^3/uL (0.0-0.7) Basophils # (Auto) 0.0 x10^3/uL (0.0-0.2) Sodium Level 136 mmol/L (136-145) Potassium Level 4.0 mmol/L (3.5-5.1) Chloride Level 105 mmol/L (98-107) Carbon Dioxide Level 27 mmol/L (21-32) Anion Gap 4 (6-14) Blood Urea Nitrogen 28 mg/dL (7-20) Creatinine 1.5 mg/dL (0.6-1.0) Estimated GFR (Cockcroft-Gault) 32.9 BUN/Creatinine Ratio 19 (6-20) Glucose Level 110 mg/dL (70-99) Calcium Level 8.0 mg/dL (8.5-10.1) Magnesium Level 1.8 mg/dL (1.8-2.4) Total Bilirubin 0.7 mg/dL (0.2-1.0) Aspartate Amino Transf (AST/SGOT) 54 U/L (15-37) Alanine Aminotransferase (ALT/SGPT) 27 U/L (14-59) Alkaline Phosphatase 74 U/L (46-116) Troponin I High Sensitivity 29 ng/L (4-50) Total Protein 6.5 g/dL (6.4-8.2) Albumin 3.3 g/dL (3.4-5.0) Albumin/Globulin Ratio 1.0 (1.0-1.7) Urine Collection Type U cath Urine Color Yellow Urine Clarity Clear Urine pH 5.0 (<5.0-8.0) Urine Specific [place] 1.020 (1.000-1.030) Urine Protein Negative mg/dL (NEG-TRACE) Urine Glucose (UA) Negative mg/dL (NEG) Urine Ketones (Stick) Negative mg/dL (NEG) Urine Blood Negative (NEG) Urine Nitrite Negative (NEG) Urine Bilirubin Negative (NEG) Urine Urobilinogen Dipstick 0.2 mg/dL (0.2 mg/dL) Urine Leukocyte Esterase Negative (NEG) Urine RBC 0 /HPF (0-2) Urine WBC 1-4 /HPF (0-4) Urine Bacteria Moderate /HPF (0-FEW) SARS-CoV-2 Antigen (Rapid) Positive (NEGATIVE) Prothrombin Time 19.2 SEC (11.7-14.0) Prothromb Time International Ratio 1.6 (0.8-1.1) Review All relevant outside records, renal labs, imaging studies, telemetry/EKG's were reviewed. Images Images CT chest w/o Contrast IMPRESSION: 1. No sequela of osseous or soft tissue trauma seen throughout the chest. 2. Extensive calcific atherosclerosis. Diffusely calcified inaja coronary arteries in the setting of previous CABG. 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 3. Multifocal groundglass airspace infiltrates with a basilar predilection. The appearance is nonspecific but raises concern for an atypical/viral pneumonia. Atelectasis, fibrosis, interstitial/alveolar edema and other etiologies could contribute to the appearance. Correlation is needed with patient history and symptoms to help differentiate. 4. Ovoid intermediate density focus within the right hepatic lobe measuring 3.7 x 2.8 x 3.2 cm. This is incompletely characterized but a benign consideration is a hemangioma. Correlation with any outside imaging would be useful to confirm stability. If none are obtainable ultrasound evaluation is recommended. 5. Small right adrenal gland nodule measuring 1 cm which is indeterminate based on density. Correlate with outside imaging as well, if available. 6. Mild splenomegaly. 7. Several mildly enlarged mediastinal and hilar lymph nodes. A reactive etiology is felt most likely given the appearance of the lungs unless there is any pertinent medical history that would suggest otherwise. MUSTAPHA MAJANO MD Aug 01, 2021 11:35
--- NOTE | 2021-08-01 14:45 | NUR ---
when assessing, patient did not have IV catheter in her right ac. I asked pt if she knew anything about it. She said she did not know where it went. Started IV left FA #[id number].
[2021-08-01 14:58] VITALS: BP 145/81
[2021-08-01] MEDS ORDERED: WARFARIN 7.5 MG TABLET. PO SCH (16:00)
[2021-08-01] MEDS ORDERED: LABETALOL 20 MG/4 ML DISP.SYRIN. IVP PRN (18:00)
--- NOTE | 2021-08-01 18:52 | NUR ---
1909 patient called saying she was feeling dizzy. I took her BP 183/93 HR 79. rechecked her BP, it was 198/82 HR-78. Notified Dr. Johnson. He ordered 5mg amlodipine PO once daily HS and PRN -labetalol 10mg IV q 2hrs for SBP >180 or DBP>105. Administered 5mg amlodipine. Will continue to monitor.
[2021-08-01 19:52] VITALS: BP 147/68
--- NOTE | 2021-08-01 20:20 | PDOC ---
[employer] PROGRESS NOTE Date of Service DOS: DATE: 08/01/21 TIME: 20:18 Chief Complaint Chief Complaint Bilateral carotid disease, azotemia, chronic renal insufficiency, leukopenia. The patient has been admitted. We will consult Vascular Surgery, consult Nephrology. IV fluids, home meds. DVT prophylaxis. Full code. Cardiac monitoring. We are ruling out COVID-19. P.r.n. Tylenol. I consulted high school social studies tutor for possible care home. History of Present Illness History of Present Illness 08/01 Patient eval and examined at bedside. She was resting in bed no major complaints. Asked when she could go home and "go back to my $5000 a month living facility." She also said she has had enough surgeries in her life including a CABG and didnt want anymore. Explained reasons for continued admission. She understood. Likely d/c in next day or two. Vitals/I&O Vitals/I&O: Vital Signs Date Time Temp Pulse Resp B/P (MAP) Pulse Ox O2 Delivery O2 Flow Rate FiO2 08/01/21 19:52 97.1 71 21 147/68 (94) 92 Room Air 97.1 I & O 07/31/21 07/31/21 08/01/21 15:00 23:00 07:00 Intake Total 200 ml Output Total 150 ml Balance 50 ml Physical Exam General: Alert, Oriented X3, Cooperative Heart: Regular rate Lungs: Clear Abdomen: Normal bowel sounds, Soft, No tenderness Extremities: No edema, Normal pulses Skin: No significant lesion Labs Labs: Laboratory Tests Test 08/01/21 09:32 Prothrombin Time 19.2 SEC (11.7-14.0) Prothromb Time International Ratio 1.6 (0.8-1.1) Assessment and Plan Assessmemt and Plan Problems Medical Problems: (1) AMS (altered mental status) Status: Acute (2) Carotid stenosis, symptomatic w/o infarct Status: Acute (3) COVID-19 virus infection Status: Acute Comment Review of Relevant I have reviewed the following items cullen (where applicable) has been applied. Medications: Current Medications Medications (Trade) Dose Ordered Sig/Kristopher Route PRN Reason Start Time Stop Time Status Last Admin Dose Admin Aspirin (Ecotrin) 81 mg DAILY PO 08/01/21 09:00 08/01/21 08:52 Cetirizine HCl (ZyrTEC) 10 mg DAILY PO 08/01/21 09:00 08/01/21 08:53 Vitamin D (Vitamin D3) 2,000 unit DAILY PO 08/01/21 09:00 08/01/21 08:52 Donepezil HCl (Aricept) 10 mg DAILY PO 08/01/21 09:00 08/01/21 08:52 Hydrochlorothiazide (Microzide) 12.5 mg DAILY PO 08/01/21 09:00 08/01/21 08:52 Memantine (Namenda) 10 mg BID PO 08/01/21 09:00 08/01/21 08:53 Mupirocin (Bactroban) 1 hansel TID TP 08/01/21 09:00 08/01/21 14:20 Warfarin Sodium (Coumadin) 7.5 mg DAILY16 PO 08/01/21 16:00 08/01/21 15:43 Famotidine (Pepcid) 40 mg DAILY PO 08/01/21 09:00 08/01/21 08:52 Losartan Potassium (Cozaar) 100 mg DAILY PO 08/01/21 09:00 08/01/21 08:53 Alprazolam (Xanax) 0.5 mg PRN Q6HRS PRN PO ANXIETY / AGITATION 08/01/21 06:15 08/01/21 18:04 Amlodipine Besylate (Norvasc) 5 mg HS PO 08/01/21 17:30 08/01/21 17:52 Justifications for Admission Other Justification CUCA PAEZ MD Aug 01, 2021 20:20
[2021-08-01] MEDS ORDERED: ATORVASTATIN CALCIUM 40 MG TABLET. PO SCH (21:00)
[2021-08-01 23:19] VITALS: BP 147/72
[2021-08-02 05:30] LABS: CALCIUM 8.3 mg/dL (8.5-10.1); CREATININE 1.1 mg/dL (0.6-1.0); GFR 47.1; POTASSIUM 3.4 mmol/L (3.5-5.1)
[2021-08-02 07:00] VITALS: BP 114/64
--- NOTE | 2021-08-02 07:53 | CONS ---
DATE OF CONSULTATION: 07/31/2021 CHIEF COMPLAINT: Recent fall. HISTORY OF PRESENT ILLNESS: The patient is an 85-year-old female with hypertension, hypercholesterolemia, coronary artery disease, and valvular heart disease, who presented to the Emergency Room a few days after a fall. She reports that she fell while going from the bathroom back to the room a few days ago. She states that she was walking on hard surface and fell when she transitioned to the carpet. She denied any unilateral weakness/numbness, vision loss, speech changes, or other lateralizing TIA or stroke symptoms prior to or after her fall. She does not remember immediately after her fall and she is uncertain whether she lost consciousness. She has had generalized weakness since that time. She denies any pain at this time. She had a CT scan of the head that showed no evidence of infarct. Carotid ultrasound showed moderate to severe plaquing in the left internal carotid artery with velocities consistent with approximately 70% diameter narrowing. There was less than 50% right internal carotid artery narrowing. She has had an aortic valve replacement and is on chronic anticoagulation. PAST MEDICAL HISTORY: 1. Coronary artery disease. 2. Aortic valve replacement. 3. Hypertension. 4. Hyperlipidemia. 5. History of colon cancer. PAST SURGICAL HISTORY: 1. Coronary bypass with aortic valve replacement. 2. Colon resection. 3. Appendectomy. 4. Hysterectomy. MEDICATIONS ON ADMISSION: Her records suggest she is on aspirin, Plavix, warfarin, Namenda, atorvastatin, hydrochlorothiazide, zolpidem, amlodipine, Micardis, donepezil. ALLERGIES: No known drug allergies. SOCIAL HISTORY: She denies any smoking or alcohol use. FAMILY HISTORY: She has a family history of heart disease and a personal history of colon cancer. REVIEW OF SYSTEMS: No recent fevers, chills, chest pain, or shortness of breath. She denies any abdominal or back pain. She denies any nausea, vomiting, diarrhea, constipation, hematochezia, melena, or other GI symptoms. She denies any unilateral weakness/numbness, vision loss, speech changes, or other lateralizing TIA or stroke symptoms. She has generalized weakness as noted above. PHYSICAL EXAMINATION: GENERAL: She is a well-developed elderly-appearing female, in no acute distress. VITAL SIGNS: Temperature 97.8, pulse 75, blood pressure 155/74, respirations 18. NECK: Supple. No lymphadenopathy. CARDIOVASCULAR: Regular rhythm. She has well-healed median sternotomy incision scar. PULMONARY: Nonlabored respirations. ABDOMEN: Soft, nontender, nondistended. No palpable masses. EXTREMITIES: She has palpable radial, femoral, popliteal, and pedal pulses bilaterally. No significant peripheral edema. NEUROLOGIC: She is awake, alert, answering questions. Her face is symmetrical with midline tongue. She has equal upper and lower extremity strength; although she notes some generalized weakness throughout. No definitive lateralizing findings. LABORATORY DATA: Significant for white blood cell 3.0, hemoglobin 13.3, platelet count of 84. Sodium 136, potassium 4.0, BUN 28, creatinine 1.5. IMAGING: As noted above. IMPRESSION: 1. Recent fall of uncertain etiology. 2. Asymptomatic moderate to severe left internal carotid artery stenosis (approximately 70%). 3. Status post aortic valve replacement, on anticoagulation. 4. Hypertension. 5. Hyperlipidemia. 6. Thrombocytopenia. 7. Early dementia. RECOMMENDATIONS: 1. Continue efforts at good blood pressure and cholesterol control. 2. Anticoagulation or antiplatelet therapy to decrease long-term stroke risk. 3. I discussed the options of management of her carotid vascular disease including medical management alone or with the addition of intervention (endarterectomy or stenting). Risks and potential benefits of each option were outlined carefully. We would be hesitant to proceed with left carotid endarterectomy unless she develops lateralizing TIA or stroke symptoms. Her other comorbid conditions significantly increased risk of perioperative complications. DK/FERNANDO DR: Bebo TID: [id number] CC: JEANNIE MAGALLANES
[2021-08-02] MEDS: LOSARTAN POTASSIUM 50 MG TABLET. PO SCH (08:01)
[2021-08-02] MEDS: hydroCHLOROthiazide 12.5 MG CAPSULE PO SCH (08:02)
[2021-08-02] MEDS: MEMANTINE 10 MG TABLET. PO SCH (08:02)
[2021-08-02] MEDS: MUPIROCIN 2 % OINTMENT 22GM TUBE. TP SCH (08:02)
[2021-08-02] MEDS: FAMOTIDINE 20 MG TABLET. PO SCH (08:02)
[2021-08-02] MEDS: CHOLECALCIFEROL (VITAMIN D3) 1,000 UNIT TABLET PO SCH (08:02)
[2021-08-02] MEDS: ASPIRIN ENTERIC COATED 81 MG TABLET.DR. PO SCH (08:02)
[2021-08-02] MEDS: CETIRIZINE HCL 10 MG TABLET. PO SCH (08:02)
[2021-08-02] MEDS: DONEPEZIL HCL 10 MG TABLET. PO SCH (08:03)
[2021-08-02] MEDS: HYDROCORTISONE 1% LOTION BOTTLE. TP SCH (08:03)
[2021-08-02 10:23] VITALS: BP 96/53
[2021-08-02] MEDS ORDERED: AMLO-186 PO ×2 (11:13→12:57)
--- NOTE | 2021-08-02 12:29 | PDOC ---
DATE OF SERVICE DATE: 08/02/21 TIME: 12:27 SUBJECTIVE ROS Stable, No complaints OBJECTIVE Vital Signs Vital Signs Date Time Temp Pulse Resp B/P (MAP) Pulse Ox O2 Delivery O2 Flow Rate FiO2 08/02/21 10:23 99.3 77 20 96/53 (67) 97 Room Air 99.3 I & 0 Intake and Output 08/02/21 07:00 Intake Total 210 ml Output Total 350 ml Balance -140 ml Intake Oral 210 ml Output Urine Total 350 ml # Voids 2 PHYSICAL EXAM Physical Exam GENERAL: NAD HEENT: Normal cephalic atraumatic, OM moist NECK: Supple LUNGS: Clear to auscultation , Non labored HEART: RRR, S1, S2 present. ABDOMEN: Soft, nontender. Positive bowel sounds EXTREMITIES: Without any cyanosis, clubbing, or edema. NEUROLOGIC: confused. PSYCHIATRIC: confused. SKIN: No ulcerations or rashes No Altman, No CVA or SP tenderness DIAGNOSIS/ASSESSMENT Assessment & Plan CKD stage 3 B - Baseline Creatinine per [facility] records 1.4-1.5 since 2019 . No prior labs available .UA unremarkable E-Lytes stable. Maintain Fluid balance, supportive care, I/O, avoid nephrotoxins Fall -History POA- defer to primary . Carotid ultrasound moderate to severe (approximately 70%) left internal carotid artery stenosis with no significant right internal carotid artery stenosis. CT of the head showed no obvious evidence of stroke.Vascular consulted Hypertension - primary managing . On ARB and Thiazide Hx of Coronary artery disease Hx of valvular heart disease on chronic anticoagulation. Discharge per primary. fu with Nephrology after dc- Routine COMMENT/RELEVANT DATA Meds Current Medications Medications (Trade) Dose Ordered Sig/Kristopher Start Time Stop Time Status Last Admin Dose Admin Acetaminophen (Tylenol) 650 mg PRN Q4HRS PRN 07/31/21 16:30 08/01/21 16:29 DC Alprazolam (Xanax) 0.5 mg PRN Q6HRS PRN 08/01/21 06:15 08/01/21 18:04 0.5 MG Amlodipine Besylate (Norvasc) 5 mg HS 08/01/21 17:30 08/01/21 23:34 5 MG Aspirin (Ecotrin) 81 mg DAILY 08/01/21 09:00 08/02/21 08:02 81 MG Atorvastatin Calcium (Lipitor) 40 mg HS 08/01/21 21:00 08/01/21 23:31 40 MG Cetirizine HCl (ZyrTEC) 10 mg DAILY 08/01/21 09:00 08/02/21 08:02 10 MG Donepezil HCl (Aricept) 10 mg DAILY 08/01/21 09:00 08/02/21 08:03 10 MG Famotidine (Pepcid) 40 mg DAILY 08/01/21 09:00 08/02/21 08:02 40 MG Fentanyl Citrate (Fentanyl 2ml Vial) 50 mcg 1X ONCE 07/31/21 14:45 07/31/21 14:46 DC 07/31/21 14:45 50 MCG Hydrochlorothiazide (Microzide) 12.5 mg DAILY 08/01/21 09:00 08/02/21 08:02 12.5 MG Hydrocortisone (Cortizone-10) 1 hansel DAILY 08/01/21 09:00 Hydroxyzine HCl (Atarax) 50 mg PRN Q6HRS PRN 07/31/21 13:00 07/31/21 13:26 50 MG Labetalol HCl (Normodyne Iv Push) 10 mg PRN Q2HRS PRN 08/01/21 18:00 Lorazepam (Ativan Inj) 0.5 mg 1X ONCE 07/31/21 14:45 07/31/21 14:46 DC 07/31/21 14:45 0.5 MG Losartan Potassium (Cozaar) 100 mg DAILY 08/01/21 09:00 08/02/21 08:01 100 MG Memantine (Namenda) 10 mg BID 08/01/21 09:00 08/02/21 08:02 10 MG Mupirocin (Bactroban) 1 hansel TID 08/01/21 09:00 08/02/21 08:02 1 HANSEL Ringer's Solution 1,000 ml @ 1,000 mls/hr 1X ONCE 07/31/21 11:45 07/31/21 12:44 DC 07/31/21 13:10 1,000 MLS/HR Tramadol HCl (Ultram) 50 mg 1X ONCE 07/31/21 11:45 07/31/21 11:46 DC 07/31/21 11:45 50 MG Vitamin D (Vitamin D3) 2,000 unit DAILY 08/01/21 09:00 08/02/21 08:02 2,000 UNIT Warfarin Sodium (Coumadin Per Pharmacy) 1 each PRN DAILY PRN 08/02/21 08:45 Warfarin Sodium (Coumadin) 7.5 mg DAILY16 08/01/21 16:00 08/01/21 15:43 7.5 MG Zolpidem Tartrate (Ambien) 5 mg PRN QHS PRN 08/01/21 06:00 08/01/21 23:31 5 MG Lab Laboratory Tests Test 08/02/21 04:00 Sodium Level 137 mmol/L (136-145) Potassium Level 3.4 mmol/L (3.5-5.1) Chloride Level 103 mmol/L (98-107) Carbon Dioxide Level 26 mmol/L (21-32) Anion Gap 8 (6-14) Blood Urea Nitrogen 18 mg/dL (7-20) Creatinine 1.1 mg/dL (0.6-1.0) Estimated GFR (Cockcroft-Gault) 47.1 Glucose Level 103 mg/dL (70-99) Calcium Level 8.3 mg/dL (8.5-10.1) Results All relevant outside records, renal labs, imaging studies, telemetry/EKG's were reviewed. Justicifation of Admission Dx: Justifications for Admission: Justification of Admission Dx: N/A MUSTAPHA MAJANO MD Aug 02, 2021 12:29
--- NOTE | 2021-08-02 12:35 | PDOC3 ---
[facility]-Discharge Summary Date of Admission: Date of Admission: Jul 31, 2021 Date of Discharge: Date of Discharge: Aug 02, 2021 Admission Diagnosis: Problems: (1) COVID-19 virus infection (2) AMS (altered mental status) (3) Carotid stenosis, symptomatic w/o infarct Discharge Diagnosis: Discharge Diagnosis: Same Consults: Consults: Vascular surgery, Renal Hospital Course: Hospital Course: Chief Complaint Bilateral carotid disease, azotemia, chronic renal insufficiency, leukopenia. The patient has been admitted. We will consult Vascular Surgery, consult Nephrology. IV fluids, home meds. DVT prophylaxis. Full code. Cardiac monitoring. We are ruling out COVID-19. P.r.n. Tylenol. I consulted oncology social worker for possible long term. History of Present Illness History of Present Illness 08/02 Evaluated examined at bedside. Eager for discharge. Plan to discharge home today. No surgical intervention planned. Educated her on importance of quarantining and seeing her primary doctor should she develop any respiratory symptoms from Covid positivity. Great 30 minutes spent on discharge. 18 minutes advance care planning. Discussed with daughter on phone as well. 08/01 Patient eval and examined at bedside. She was resting in bed no major complaints. Asked when she could go home and "go back to my $5000 a month living facility." She also said she has had enough surgeries in her life including a CABG and didnt want anymore. Explained reasons for continued admission. She understood. Likely d/c in next day or two. Disposition: Disposition/Orders: D/C to Home Activity: Activity: Resume previous activity Diet: Diet: Regular Medications: Home Meds Active Scripts Amlodipine Besylate (AMLODIPINE BESYLATE) 5 Mg Tablet, 5 MG PO HS for htn for 30 Days, #30 TAB Prov:CUCA PAEZ MD 08/02/21 Reported Medications Alprazolam (XANAX) 0.5 Mg Tablet, 0.5 MG PO PRN Q6HRS PRN for ANXIETY / AGITATION, TAB 0 Refills 08/01/21 Cholecalciferol (Vitamin D3) (Vitamin D3 ) 25 Mcg Tablet, 25 MCG PO DAILY for SUPPLEMENT, TAB 1,000 UNITS = 25 MCG 08/01/21 Mupirocin (MUPIROCIN OINTMENT) 22 Gm Oint...g., 1 RADHA TP TID for WOUND CARE, #1 EACH 08/01/21 Fluocinolone Acetonide (FLUOCINOLONE ACETONIDE) 118.28 Ml Oil, 118.28 ML TP DAILY for psoriasis, LIQUID 08/01/21 Famotidine (FAMOTIDINE) 40 Mg Tablet, 40 MG PO DAILY for heartburn, TAB 08/01/21 Aspirin (ASPIRIN EC) 81 Mg Tablet.dr, 1 TAB PO DAILY for CAD for 14 Days, #14 TAB 3 Refills 04/26/20 Donepezil Hcl (DONEPEZIL HCL) 10 Mg Tablet, 1 TAB PO DAILY for rx, #90 TAB 1 Refill 04/11/20 Telmisartan (MICARDIS) 80 Mg Tablet, 1 TAB PO DAILY for rx, #30 TAB 5 Refills 04/11/20 Cetirizine Hcl (CETIRIZINE HCL) 10 Mg Tablet, 1 TAB PO DAILY for Alllergies, #30 TAB 2 Refills 03/12/20 Zolpidem Tartrate (ZOLPIDEM TARTRATE) 5 Mg Tablet, 10 MG PO PRN QHS PRN for INSOMNIA, TAB 0 Refills 03/12/20 Hydrochlorothiazide (HYDROCHLOROTHIAZIDE CAPSULE ) 12.5 Mg Capsule, 12.5 MG PO DAILY for DIURETIC, CAP 0 Refills 03/12/20 Atorvastatin Calcium (ATORVASTATIN CALCIUM) 40 Mg Tablet, 40 MG PO HS for FOR C HOLESTEROL, #30 TAB 0 Refills 03/12/20 Memantine Hcl (NAMENDA) 10 Mg Tablet, 10 MG PO BID for Dementia, TAB 03/12/20 Warfarin Sodium (WARFARIN SODIUM) 7.5 Mg Tablet, 7 MG PO DAILYWSUP for mechanical valve, TAB 03/12/20 Scheduled Amlodipine Besylate (Amlodipine Besylate), 5 MG PO HS Aspirin (Aspirin Ec), 1 TAB PO DAILY, (Reported) Atorvastatin Calcium (Atorvastatin Calcium), 40 MG PO HS, (Reported) Cetirizine Hcl (Cetirizine Hcl), 1 TAB PO DAILY, (Reported) Cholecalciferol (Vitamin D3) (Vitamin D3 ), 25 MCG PO DAILY, (Reported) Donepezil Hcl (Donepezil Hcl), 1 TAB PO DAILY, (Reported) Famotidine (Famotidine), 40 MG PO DAILY, (Reported) Fluocinolone Acetonide (Fluocinolone Acetonide), 118.28 ML TP DAILY, (Reported) Hydrochlorothiazide (Hydrochlorothiazide Capsule ), 12.5 MG PO DAILY, (Reported) Memantine Hcl (Namenda), 10 MG PO BID, (Reported) Mupirocin (Mupirocin Ointment), 1 RADHA TP TID, (Reported) Telmisartan (Micardis), 1 TAB PO DAILY, (Reported) Warfarin Sodium (Warfarin Sodium), 7 MG PO DAILYWSUP, (Reported) Scheduled PRN Alprazolam (Xanax), 0.5 MG PO PRN Q6HRS PRN for ANXIETY / AGITATION, (Reported) Zolpidem Tartrate (Zolpidem Tartrate), 10 MG PO PRN QHS PRN for INSOMNIA, (Reported) Justicifation of Admission Dx: Justifications for Admission: Justification of Admission Dx: N/A CUCA PAEZ MD Aug 02, 2021 12:35
--- NOTE | 2021-08-02 13:17 | NUR ---
pt discharged. left by wheelchair, with daughter, in personal vehicle, going to [facility]
== END 2021-08-02 13:05 | disposition home or self-care (01) | DRG 67 ==
LOC: ER 10:49 → ED HOLD 16:16 → 6 SOUTH 17:22
PROVIDERS: ADMIT Internal Medicine; ATTEND Internal Medicine
DX: I65.23 Occlusion and stenosis of bilateral carotid arteries (principal); U07.1 COVID-19; E27.8 Other specified disorders of adrenal gland; E78.00 Pure hypercholesterolemia, unspecified; E78.5 Hyperlipidemia, unspecified; F03.90 Unspecified dementia, unspecified severity, without behavioral disturbance, psychotic disturbance, mood disturbance, and anxiety; D69.6 Thrombocytopenia, unspecified; D18.03 Hemangioma of intra-abdominal structures; I12.9 Hypertensive chronic kidney disease with stage 1 through stage 4 chronic kidney disease, or unspecified chronic kidney disease; I25.10 Atherosclerotic heart disease of native coronary artery without angina pectoris; I71.2 Thoracic aortic aneurysm, without rupture; M17.12 Unilateral primary osteoarthritis, left knee; N18.9 Chronic kidney disease, unspecified; Z79.01 Long term (current) use of anticoagulants; Z82.49 Family history of ischemic heart disease and other diseases of the circulatory system; Z85.038 Personal history of other malignant neoplasm of large intestine; Z90.710 Acquired absence of both cervix and uterus; Z95.1 Presence of aortocoronary bypass graft; Z95.2 Presence of prosthetic heart valve; Z95.5 Presence of coronary angioplasty implant and graft; F32.A Depression, unspecified; F41.9 Anxiety disorder, unspecified; W18.39XA Other fall on same level, initial encounter; Y93.89 Activity, other specified; Y92.89 Other specified places as the place of occurrence of the external cause; Y99.8 Other external cause status; G47.00 Insomnia, unspecified; L40.9 Psoriasis, unspecified
CPT/HCPCS: 36415; 70450; 71250; 72125; 80048; 80053; 81001; 83735; 84484; 85025; 85610; 87086; 87426; 93005; 93880; 96374; 96375; J2060; J3010; J7120; P9612; 73562-50; 97116-GP; 97535-GO; 99285-25; G0378